=== PATIENT | female | born 1945 | race Caucasian/White ===

== ENCOUNTER 2024-07-25 16:40 | Emergency (ER) | payer MEDICARE, SELFPAY ==
[2024-07-25 16:52] VITALS: BP 155/84; PULSE 79; RESP 18; TEMP 36.7; O2SAT 99
--- NOTE | 2024-07-25 17:07 | ED.URI ---
HPI - URI/Sore Throat General Chief Complaint: Upper Respiratory Infection Stated Complaint: Sinus Pressure Time Seen by Provider: 07/25/24 17:07 Source: patient Mode of arrival: ambulatory Limitations: no limitations History of Present Illness HPI Narrative: 78-year-old female presents with complaint of sinus congestion, pressure, runny nose off and on for the past month. Patient reports an last 4 days sinus pressure worse with coughing, postnasal drainage and hoarse voice. Takes Claritin and Flonase daily. Afebrile. All systems reviewed and negative except as noted above. Related Data Home Medications Medication Instructions Recorded Confirmed amlodipine 5 mg tablet mg 07/25/24 atenolol 50 mg tablet mg 07/25/24 atorvastatin 40 mg tablet mg 07/25/24 insulin NPH-regular 70-30 U-100 subcut 07/25/24 insulin 100 unit/mL subcutaneous pen (Humulin 70/30 U-100 KwikPen) lancets 33 gauge (OneTouch Delica 07/25/24 07/25/24 Plus Lancet) lisinopril 20 mg tablet mg 07/25/24 metformin 500 mg tablet mg 07/25/24 pen needle, diabetic 32 gauge x 07/25/24 07/25/24 5/32 (Droplet Pen Needle) tirzepatide 2.5 mg/0.5 mL mg subcut 07/25/24 subcutaneous pen injector (Jenniero) trazodone 50 mg tablet mg 07/25/24 Allergies Allergy/AdvReac Type Severity Reaction Status Date / Time Sulfa (Sulfonamide Allergy Rash Verified 07/25/24 17:08 Antibiotics) Review of Systems Review of Systems: CONSTITUTIONAL: Denies fever, chills, or sweats. EYES: Denies visual changes, redness, or discharge. ENT: Reports rhinorrhea, congestion, sinus pressure, postnasal drainage. Denies sore throat, or otalgia. CARDIOVASCULAR: Denies chest pain, palpitations, or edema. RESPIRATORY: reports cough. Denies dyspnea. GASTROINTESTINAL: Denies abdominal pain, nausea, vomiting, or diarrhea. GENITOURINARY: Denies dysuria or hematuria. SKIN: Denies rash or itching. MUSCULOSKELETAL: Denies back pain, joint pain, or myalgia. NEUROLOGIC: Denies headache, numbness, or weakness. PSYCHIATRIC: Denies anxiety or depression. All other systems reviewed are negative, except as documented in HPI. PMFSH Comments At time of signature, agree with nursing past medical, surgical, social and family history. There is no relevant family history pertinent to the presenting complaint. Exam Narrative: GENERAL: This is a well-nourished, well-developed patient, in no apparent distress. HEAD: normocephalic, atraumatic. EYES: PERRL. Sclera clear/white. Vision is grossly intact. EARS: External ears normal, auditory canals clear and without drainage, TMs normal without perforation. Hearing grossly intact. NOSE: External nose normal with clear nasal drainage, moderate congestion, erythema swelling to bilateral nares. Ethmoid sinus tenderness on palpation. THROAT: Mucous membranes moist, posterior pharynx clear. NECK: Neck supple, non-tender without lymphadenopathy, masses or thyromegaly. CARDIOVASCULAR: Regular rate and rhythm without murmurs, gallops, or rubs. RESPIRATORY: Clear to auscultation. Breath sounds equal bilaterally. No wheezes, rales, or rhonchi. SKIN: warm, Dry, intact with no suspicious lesions or rash, good texture and turgor. NEURO: awake, alert, and oriented to person, place and time. There were no obvious focal neurologic abnormalities. EXTREMITIES: No joint tenderness, effusion, or edema noted. Course Course Level of Care: Express Care Visit Vital Signs Vital signs: Vital Signs Temperature 36.7 C 07/25/24 16:52 Pulse Rate 79 07/25/24 16:52 Respiratory Rate 18 07/25/24 16:52 Blood Pressure 155/84 H 07/25/24 16:52 Pulse Oximetry 99 07/25/24 16:52 Oxygen Delivery Room Air 07/25/24 16:52 Temperature 36.7 C 07/25/24 16:52 Pulse Rate 79 07/25/24 16:52 Respiratory Rate 18 07/25/24 16:52 Blood Pressure 155/84 H 07/25/24 16:52 Pulse Oximetry 99 07/25/24 16:52 Oxygen Delivery Room
== END 2024-07-25 17:21 | disposition home or self-care (01) ==
PROVIDERS: Emergency Provider Nurse Practitioner Family; PCP Internal Medicine Geriatric Medicine
DX: J01.90 Acute sinusitis, unspecified (principal); E78.00 Pure hypercholesterolemia, unspecified; I10 Essential (primary) hypertension; E11.9 Type 2 diabetes mellitus without complications; M19.90 Unspecified osteoarthritis, unspecified site
CPT/HCPCS: 99203; G0463

== ENCOUNTER 2025-05-27 09:28 | Emergency (ER) | payer MEDICARE, SELFPAY ==
[2025-05-27 09:40] VITALS: BP 174/60; PULSE 77; RESP 20; TEMP 36.6; O2SAT 98
--- OUTSIDE RECORDS SUMMARY | 2025-05-27 10:09 | XMS_ITS | Encounter Summary ---
Author Organization [facility] Address [address] [place] [address] Care Team Providers Care Study Assistant Name Role Phone Luz Oneal MD Primary Care Provider [phone] Reason for Visit * Reason Onset Date Comments Medication Issue 01/18/2024 Encounter Details Date Type Department Care Team (Late st Contact Info) Description 01/18/2024 Telephone [facility] - CUPOLA PATCHER [address] [place] [address] Yamileth Johnson MD [address] [place] [address] Medication Issue Social History Tobacco Use Types Packs/Day Years Used Date Smoking Tobacco: Never Smokeless Tobacco: Never Alcohol Use Standard Drinks/Week Comments No 0 (1 standard drink = 0.6 oz pur e alcohol) Comments No Sex and Gender Information Value Date Recorded Sex Assigned at Not on file 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 Answer Date of Assessment Author No 03/22/2017 7:53 AM Nicole Espinoza RN * Is person blind or have serious difficulty seeing? Answer Date of Assessment Author No 03/22/2017 7:53 AM Nicole Espinoza RN * Does person have serious difficulty walking/climbing stairs? Answer Date of Assessment Author No 03/22/2017 7:53 AM Nicole Espinoza RN * Does person have difficulty dressing/bathing? Answer Date of Assessment Author No 03/22/2017 7:53 AM CDT Nicole Schaefer RN * Does person have difficulty doing errands alone? Answer Date of Assessment Author No 03/22/2017 7:53 AM CDT Nicole Schaefer RN documented as of this encounter Mental Status * Does person have difficulty concentrating/remembering/making decisions? Answer Entry Date Author No 03/22/2017 7:53 AM CDT Nicole Schaefer RN documented in this encounter Miscellaneous Notes * Telephone Encounter - Yamileth Srinivasan RN - 01/18/2024 11:50 AM CDT norco 5/325 #90 Last filled 12/08/2023 Take 1 (one) tablet by mouth every 8 hours as needed for Pain forwarded to Dr Johnson * Telephone Encounter - Sweta Liu - 01/18/2024 11:27 AM CDT Pt called and stated she is needed a refill on her pain meds. CB [phone] documented in this encounter Plan of Treatment Not on file documented as of this encounter Visit Diagnoses Not on filedocumented in this encounter Care Teams Study Assistant Relationship Specialty Start Date End Date Luz Oneal MD [address] [place] [id number] PCP - General Internal Medicine 06/22/23 documented as of this encounter
--- OUTSIDE RECORDS SUMMARY | 2025-05-27 10:09 | XMS_ITS | Encounter Summary ---
Author Organization [facility] Address [address] [place] [address] Care Team Providers Care Director Sales Training Name Role Phone Luz Oneal MD Primary Care Provider [phone] Reason for Visit * Reason Onset Date Comments Refill Request 09/21/2023 Encounter Details Date Type Department Care Team (Late st Contact Info) Description 09/21/2023 Telephone [facility] - SENIOR NET SOFTWARE ENGINEER [address] [place] [address] Yamileth Johnson MD [address] [place] [address] Refill Request Social History Tobacco Use Types Packs/Day Years Used Date Smoking Tobacco: Never Smokeless Tobacco: Never Alcohol Use Standard Drinks/Week Comments No 0 (1 standard drink = 0.6 oz pur e alcohol) Comments No Sex and Gender Information Value Date Recorded Sex Assigned at Not on file 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 Answer Entry Date Author No 03/22/2017 7:53 AM Nicole Espinoza RN documented in this encounter Miscellaneous Notes * Telephone Encounter - Yamileth Srinivasan RN - 09/21/2023 9:48 AM GEAR DESIGN ENGINEER HYDROcodone-acetaminophen ([place]) 5-325 MG tablet Take 1 (one) tablet by mouth every 8 hours as needed for Pain Reasons: Pain #90 Last written 08/11/2023 Forwarded to provider DESIGN ENGINEER * Telephone Encounter - Raf Rodriguez - 09/21/2023 9:03 AM CST The patient called requesting a refill of Vicodin be called into the [facility] in [place], [place] please. Patient CB: [phone] Thank you. DESIGN ENGINEER documented in this encounter Plan of Treatment Not on file documented as of this encounter Visit Diagnoses Not on filedocumented in this encounter Care Teams Director Sales Training Relationship Specialty Start Date End Date Luz Oneal MD [address] [place] [address] PCP - General Internal Medicine 06/22/23 documented as of this encounter
--- OUTSIDE RECORDS SUMMARY | 2025-05-27 10:10 | XMS_ITS | Encounter Summary ---
Author Organization [facility] Address [address] [place] [address] Care Team Providers Care Recycling Tech Name Role Phone Luz Oneal MD Primary Care Provider [phone] Luz Oneal MD Primary Care Provider [phone] Reason for Visit * Reason Onset Date Comments Med Question 08/27/2021 Encounter Details Date Type Department Care Team (Late st Contact Info) Description 08/27/2021 Telephone [facility] 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 Answer Date of Assessment Author No 03/22/2017 7:53 AM Nicole Espinoza RN * Does person have difficulty doing errands alone? Answer Date of Assessment Author No 03/22/2017 7:53 AM Nicole Espinoza RN documented as of this encounter Mental Status * Does person have difficulty concentrating/remembering/making decisions? Answer Entry Date Author No 03/22/2017 7:53 AM Nicole Espinoza RN documented in this encounter Miscellaneous Notes * Telephone Encounter - Salome Medeiros LPN - 08/27/2021 9:08 AM BOAT OPERATOR Last visit 03/2021 Next visit 09/2021 Last refill 07/2021 for 90 tablets Due to type of medication will have to send to provider for review and possible signature. OPERATOR * Telephone Encounter - Vince Rodriguez - 08/27/2021 8:37 AM CST PT is calling to request a refill of pain meds Hydrocodone. Pharmacy on file still accurate OPERATOR documented in this encounter Plan of Treatment Not on file documented as of this encounter Visit Diagnoses Not on filedocumented in this encounter Care Teams Recycling Tech Relationship Specialty Start Date End Date Luz Oneal MD [address] [place] [address] PCP - General 12/09/11 06/21/23 Luz Oneal MD [address] [place] [address] PCP - General Internal Medicine 06/22/23 documented as of this encounter
--- OUTSIDE RECORDS SUMMARY | 2025-05-27 10:10 | XMS_ITS | Encounter Summary ---
Author Organization [facility] Health Address [address] [place] [address] Care Team Providers Care Meat Wrapper Name Role Phone Luz Oneal MD Primary Care Provider [phone] Reason for Visit * Reason Onset Date Comments Refill Request 05/08/2024 Encounter Details Date Type Department Care Team (Late st Contact Info) Description 05/08/2024 Telephone [facility] - CONTROLS TECHNICIAN [address] [facility] [address] [address] [place] [address] Yamileth Johnson MD [address] [place] [address] Refill Request Social History Tobacco Use Types Packs/Day Years Used Date Smoking Tobacco: Never Smokeless Tobacco: Never Alcohol Use Standard Drinks/Week Comments No 0 (1 standard drink = 0.6 oz pur e alcohol) Comments No Sex and Gender Information Value Date Recorded Sex Assigned at Not on file Legal Sex Female 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 CB: [phone] documented in this encounter Plan of Treatment Not on file documented as of this encounter Visit Diagnoses Not on filedocumented in this encounter Care Teams Meat Wrapper Relationship Specialty Start Date End Date Luz Oneal MD [address] [place] [address] PCP - General Internal Medicine 06/22/23 documented as of this encounter
--- OUTSIDE RECORDS SUMMARY | 2025-05-27 10:10 | XMS_ITS | Encounter Summary ---
Author Organization [facility] Address [address] [place] [address] Care Team Providers Care Blunger Name Role Phone Luz Oneal MD Primary Care Provider [phone] Reason for Visit * Reason Onset Date Comments MEDICATION REFILL 01/09/2025 Encounter Details Date Type Department Care Team (Late st Contact Info) Description 01/09/2025 Telephone [facility] - LIFE INSURANCE AGENT [address] [place] [address] Yamileth Johnson MD [address] [place] [address] MEDICATION REFILL Social History Tobacco Use Types Packs/Day Years Used Date Smoking Tobacco: Never Smokeless Tobacco: Never Alcohol Use Standard Drinks/Week Comments No 0 (1 standard drink = 0.6 oz pur e alcohol) Comments No Sex and Gender Information Value Date Recorded Sex Assigned at Not on file Legal Sex Female 1:09 PM FORGE TENDER Gender Identity Female Sexual Orientation Not on [...] Telephone Encounter - Yamileth Srinivasan RN - 01/09/2025 10:50 AM CDT HYDROcodone-acetaminophen ([place]) 5-325 MG tablet Take 1 (one) tablet by mouth every 8 hours as needed for Pain Reasons #90 Last filled 11/28/2024 [facility] Forwarded to provider * Telephone Encounter - Clover Osborn - 01/09/2025 10:45 AM CDT Pt is wanting an refill on pain med. CB: [phone] documented in this encounter Plan of Treatment Not on file documented as of this encounter Visit Diagnoses Not on filedocumented in this encounter Care Teams Blunger Relationship Specialty Start Date End Date Luz Oneal MD [address] [place] [address] PCP - General Internal Medicine 06/22/23 documented as of this encounter
--- OUTSIDE RECORDS SUMMARY | 2025-05-27 10:10 | XMS_ITS | Encounter Summary ---
Author Organization [facility] Address [address] [place] [address] Care Team Providers Care Assistant Grocery Store Manager Name Role Phone Luz Oneal MD Primary Care Provider [phone] Luz Oneal MD Primary Care Provider [phone] Reason for Visit * Reason Onset Date Comments Question 10/27/2022 Encounter Details Date Type Department Care Team (Late st Contact Info) Description 10/27/2022 Telephone [facility] [address] [place], [place] [id number] Yamileth Johnson MD [address] [place] [address] Question Social History Tobacco Use Types Packs/Day Years Used Date Smoking Tobacco: Never Smokeless Tobacco: Never Alcohol Use Standard Drinks/Week Comments No 0 (1 standard drink = 0.6 oz pur e alcohol) Comments No Sex and Gender Information Value Date Recorded Sex Assigned at Not on file Legal Sex Female 1:09 PM REVENUE COORDINATOR Gender Identity Female Sexual Orientation Not on [...] encounter Miscellaneous Notes * Telephone Encounter - Tyler Irving RN - 10/27/2022 1:03 PM CST Last refilled 09/22/22. Last visit 07/31. Due to type of medication will have to send to provider for review and refill. NUE COORDINATOR * Telephone Encounter - Corinne Espinoza - 10/27/2022 11:32 AM CST Pt calling tot get a refill on her Vicodin .. Please contact # [phone] NUE COORDINATOR documented in this encounter Plan of Treatment Not on file documented as of this encounter Visit Diagnoses Not on filedocumented in this encounter Care Teams Assistant Grocery Store Manager Relationship Specialty Start Date End Date Luz Oneal MD [address] [place] [address] PCP - General 12/09/11 06/21/23 Luz Oneal MD [address] [place] [address] PCP - General Internal Medicine 06/22/23 documented as of this encounter
--- OUTSIDE RECORDS SUMMARY | 2025-05-27 10:10 | XMS_ITS | Clinical Summary ---
Author Organization [facility] Address [address] [place] [address] Care Team Providers Care Block Trimmer Name Role Phone Luz Oneal MD Primary Care Provider [phone] Source Comments [facility] [facility],non-owned Affiliates and Associated Physician Practices is amultiple site organization consisting of ambulatory clinics and hospital sitesin [place], [place], [place] and [place]. This disclosure is being madepursuant to the Care Everywhere program and may not contain all information available regarding this patient. Last updated 18.[facility] [facility] Allergies Active Allergy Reactions Criticality Noted Date Comments Empagliflozin Itching Low 08/30/2023 Diffuse body itching also developed vaginal itching Gabapentin Other Low 12/02/2022 Excessive fatigue/weakness Sitagliptin Rash Medium 09/15/2023 Develops itching and rash Sulfa Drugs Itching,Swelling 12/02/2011 Medications * Be aware that medications may not be up to date on this document. Alwaysverify current medications with the patient. metFORMIN (GLUCOPHAGE) 500 MG tabletIndicati ons:Type 2 Diabetes Mellitus Take 1 (one) tablet by mouth 2 times daily with morning and evening meal Reasons: Type 2 Diabetes Active atenolol (TENORMIN) 50 MG tabletIndicati ons:Hypertensi on Take 1 (one) tablet by mouth once daily Reasons: High Blood Pressure Active Insulin NPH Isophane & Regular (HUMULIN 70/30 SC) Inject 20 Units subcutaneously 2 times daily Active lisinopril (Prinivil; Zestril) 20 MG tablet Take 1 (one) tablet by mouth once daily 2 Active Lancets (ONETOUCH DELICA PLUS 33G EXTRA FINE LANCET) USE TO CHECK BLOOD SUGAR TWICE DAILY 2 Active OneTouch Verio test strip 2 times daily 2 Active TRUEplus 5-[place] 32G X 4 MM MISC USE DIRECTED TWICE DAILY 3 Active triamcinolone acetonide (Kenalog) 0.1 % ointment APPLY TOPICALLY TO THE LIP RASH FOUR TIMES DAILY NEEDED 3 Active atorvastatin (Lipitor) 40 MG tablet Take 1 (one) tablet by mouth once daily 3 Active Cholecalcifero l (Vitamin D-[address]) 25 MCG (1000 UT) Take 1 (one) tablet by mouth once daily Active cyanocobalamin (Vitamin B-12) 1000 MCG tablet Take 1 (one) tablet by mouth once daily 3 Active empagliflozin (Jardiance) 10 MG tablet Take 1 (one) tablet by mouth once daily Active amLODIPine (Norvasc) 5 MG tablet Take 1 (one) tablet by mouth once daily 4 Active HYDROcodone-ac etaminophen ([place]) 5-325 MG tabletIndicati ons:Pain Take 1 (one) tablet by mouth every 8 hours as needed for Pain Reasons: Pain 90 tablet 5 Active Active Problems Problem Noted Date Diagnosed Date Chronic pain syndrome 03/13/2020 OAB (overactive bladder) 04/19/2019 Chronic interstitial cystitis Immunizations Immunization Administration Dates Next Due INFLUENZA VACCINE, TRIV. (AF LURIA, FLUZONE TRIVALENT; 6MO+) (IIV3) 07/31/2015,07/27/2012 INFLUENZA VACCINE 07/10/2018,07/10/2017 INFLUENZA VACCINE, HIGH-DOSE , QUADR. (FLUZONE HIGH-DOSE QUADRIVALENT; 65Y+), 0.7 ML (HD-IIV4) 07/17/2018 PNEUMOCOCCAL PPSV23 06/16/2016,05/04/2013 Pneumococcal Pcv13 Conj 05/27/2015 TDAP (7yrs+) 08/09/2012 Family History Medical History Relation Name Comments Heart Disease Brother 1 Diabetes Brother 2 Diabetes Father Elevated Lipids Father Heart Disease Father Hypertension Father Breast Cancer after age 50 or unknown Maternal Grandmo ther Cancer - Ovarian Mother Diabetes Mother Heart Disease Mother Relation Name Status Comments Brother 1 Brother 2 Father Maternal Grandmother Mother Social History Tobacco Use Types Packs/Day Years Used Date Smoking Tobacco: Never Smokeless Tobacco: Never Alcohol Use Standard Drinks/Week Comments No 0 (1 standard drink = 0.6 oz pur e alcohol) Comments No Sex and Gender Information Value Date Recorded Sex Assigned at Not on file Legal Sex Female 1:09 PM CANCER PROGRAM CONSULTANT Gender Identity Female Sexual Orientation Not on file Last Filed Vital Signs Vital Sign Reading Time Taken Comments Blood Pressure 146/78 06/27/2024 9:24 AM CDT Pulse 55 08/08/2023 12:20 PM CDT Temperature 36.7 C (98 F) 08/08/2023 11:52 AM CDT Respiratory Rate 14 08/08/2023 12:20 PM CDT Oxygen Saturation 95% 08/08/2023 12:20 PM CDT Inhaled Oxygen Concentration - - Weight 78 kg (172 lb) 06/27/2024 9:24 AM CDT Height 165.1 cm (5' 5) 06/27/2024 9:24 AM CDT Body Mass Index 28.62 06/27/2024 9:24 AM CDT Plan of Treatment Health Maintenance Due Date Last Done Comments MEDICARE AWV 12 MONTHS 1945 Opioid Medication Agreement - Annual 1945 HEPATITIS C SCREENING 08/14/1965 ZOSTER VACCINE (1 of 2) 1997 DTAP/TDAP/TD VACCINES (2 - Td or Tdap) 08/09/2022 08/09/2012 Respiratory Syncytial Virus (RSV) Vaccine Pt: or over 60 yrs (1 - 1-dose 75+ series) 2022 COVID-19 VACCINE ( season) 2024 01/15/2022, 12/26/2020, 12/05/2020 DEPRESSION SCREENING 10/10/2024 INFLUENZA VACCINE (#1) 2025 , 07/10/2021, 07/16/2020, Additional history exists PNEUMOCOCCAL VACCINE 50+ Completed 016, 05/27/2015, 05/04/2013 BONE DENSITY TESTING Completed 11/30/2021 HEPATITIS B VACCINE Aged Out No longe r eligible based on patient's age to complete this topic HIB VACCINE Aged Out No longer eligi ble based on patient's age to complete this topic HPV VACCINE Aged Out No longer eligi ble based on patient's age to complete this topic MENINGOCOCCAL (Group B) VACCINE SHARED DECISION-MAKING Aged Out No longer eligible based on patient's age to complete this topic MENINGOCOCCAL GROUPS A/C/Y/W VACCINE Aged Out No longer eligible based on patient's age to complete this topic Insurance [facility] MEDICARE MEDICARE ANTHEM Care Teams Block Trimmer Relationship Specialty Start Date End Date Luz Oneal MD [address] [place] [address] PCP - General Internal Medicine 06/22/23
--- OUTSIDE RECORDS SUMMARY | 2025-05-27 10:10 | XMS_ITS | Encounter Summary ---
Author Organization [facility] Address [address] [place] [address] Care Team Providers Care Bobbin Hauler Name Role Phone Luz Oneal MD Primary Care Provider [phone] Luz Oneal MD Primary Care Provider [phone] Reason for Visit * Reason Onset Date Comments Refill Request 01/19/2023 Encounter Details Date Type Department Care Team (Late st Contact Info) Description 01/19/2023 Telephone [facility] [address] [place] [address] Yamileth Johnson MD [address] [place] [address] Refill Request Social History Tobacco Use Types Packs/Day Years Used Date Smoking Tobacco: Never Smokeless Tobacco: Never Alcohol Use Standard Drinks/Week Comments No 0 (1 standard drink = 0.6 oz pur e alcohol) Comments No Sex and Gender Information Value Date Recorded Sex Assigned at Not on file Legal Sex Female 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 * Telephone Encounter - Almita Gu - 01/19/2023 1:46 PM CDT Pt is calling to get a refill on Vidzon... Hydrocodone 5.325 documented in this encounter Plan of Treatment Not on file documented as of this encounter Visit Diagnoses Not on filedocumented in this encounter Care Teams Bobbin Hauler Relationship Specialty Start Date End Date Luz Oneal MD [address] [place] [address] PCP - General 12/09/11 06/21/23 Luz Oneal MD [address] [place] [address] PCP - General Internal Medicine 06/22/23 documented as of this encounter
--- OUTSIDE RECORDS SUMMARY | 2025-05-27 10:10 | XMS_ITS | Encounter Summary ---
Author Organization [facility] Address [address] [facility] [address] Care Team Providers Care R&D Engineer Name Role Phone Luz Oneal MD Primary Care Provider [phone] Luz Oneal MD Primary Care Provider [phone] Reason for Visit * Reason Onset Date Comments MEDICATION REFILL 04/08/2022 Pt states she need her Encounter Details Date Type Department Care Team (Late st Contact Info) Description 04/08/2022 Telephone [facility] [address] [place] [address] Yamileth Johnson MD [address] [place] [address] MEDICATION REFILL (Pt states she need her ) Social History Tobacco Use Types Packs/Day Years Used Date Smoking Tobacco: Never Smokeless Tobacco: Never Alcohol Use Standard Drinks/Week Comments No 0 (1 standard drink = 0.6 oz pur e alcohol) Comments No Sex and Gender Information Value Date Recorded Sex Assigned at Not on file 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 Forwarded to provider * Telephone Encounter - Meme Meza - 04/08/2022 9:49 AM CDT Pt needs refill on her Hydrocodone (NORCO) 5-325 mg tablets [id number] documented in this encounter Plan of Treatment Not on file documented as of this encounter Visit Diagnoses Not on filedocumented in this encounter Care Teams R&D Engineer Relationship Specialty Start Date End Date Luz Oneal MD [address] [place] [address] PCP - General 12/09/11 06/21/23 Luz Oneal MD [address] [place] [address] PCP - General Internal Medicine 06/22/23 documented as of this encounter
--- OUTSIDE RECORDS SUMMARY | 2025-05-27 10:10 | XMS_ITS | Encounter Summary ---
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 [address] [facility] [address] [place] [address] Yamileth Johnson MD [address] [place] [address] Social History Tobacco Use Types Packs/Day Years Used Date Smoking Tobacco: Never Smokeless Tobacco: Never Alcohol Use Standard Drinks/Week Comments No 0 (1 standard drink = 0.6 oz pur e alcohol) Comments No Sex and Gender Information Value Date Recorded Sex Assigned at Not on file 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 Answer Date of Assessment Author No 03/22/2017 7:53 AM CDT Nicole Schaefer RN documented as of this encounter Mental Status * Does person have difficulty concentrating/remembering/making decisions? Answer Entry Date Author No 03/22/2017 7:53 AM CDT Nicole Schaefer RN documented in this encounter Miscellaneous Notes * Telephone Encounter - Yamileth Srinivasan RN - 08/11/2023 10:57 AM CDT Will forward to provider Bouchra / #90 last prescribed 07/07/2023 * Telephone Encounter - Alice Sanchez - 08/11/2023 10:48 AM CDT Patient called in because she needs a refill on her vicodone. Thank you Alice CB: [phone] documented in this encounter Plan of Treatment Not on file documented as of this encounter Visit Diagnoses Not on filedocumented in this encounter Care Teams Roll Cleaner Relationship Specialty Start Date End Date Luz Oneal MD [address] [place] [address] PCP - General Internal Medicine 06/22/23 documented as of this encounter
--- OUTSIDE RECORDS SUMMARY | 2025-05-27 10:10 | XMS_ITS | Clinical Summary ---
Author Organization [facility] [address] Address [address] [place] [address] Phone Care Team Providers Care Economics Professor Name Role Phone Chelsey Marcus MD Primary Care Provider [phone] Yamileth Johnson MD Unavailable [phone] Shwetha Gonzalez MD Unavailable Ana Modi MD Unavailable Rajni Casillas MD Unavailable [phone] Jeramie De La Rosa MD Unavailable [phone] Edie Cardenas OD Unavailable Jeffrey Hernandez MD Unavailable Patty Wells RN Unavailable Allergies Active Allergy Reactions Criticality Noted Date Comments Dulaglutide Nausea only,Vomiting Low Reaction: Nausea, Vomiting, Gabapentin Other (See comments) Low 12/02/2022 Excessive fatigue/weakness Sitagliptin Rash Medium 09/15/2023 Develops itching and rash Empagliflozin Itching Low 08/30/2023 Diffuse body itching also developed vaginal itching Tirzepatide Nausea & Vomiting Low 08/13/2024 Nausea vomiting abdominal pain developed between 1 and 3 days after Mounjaro 2.5 mg. Medication discontinued Semaglutide Nausea only Low 05/06/2020 Fluoxetine Headache Low 06/19/2021 Insulin Glargine-Lixisenatide Other (See comments) Low 10/26/2024 Flu like symtpoms Sulfa (Sulfonamide Antibiotics) Hives,Itching,Swel ling Medium Venlafaxine Other (See comments) Low Reaction: Insomnia, Medications cholecalciferol (VITAMIN D-3) 25 mcg (1,000 unit) tablet Take 1 tablet (1,000 Units total) by mouth daily Active cyanocobalamin (Vitamin B-12) 1,000 mcg tabletIndications :Type 2 diabetes mellitus with microalbuminuria, with long-term current use of insulin ([facility]) Take 1 tablet (1,000 mcg total) by mouth daily 90 tablet 3 023 Active lancets miscIndications:T ype 2 diabetes mellitus with microalbuminuria, with long-term current use of insulin ([facility]) Check blood sugar 2 times a day or as directed. E11.9 200 each 3 024 Active blood glucose diagnostic (glucose blood) stripIndications: Type 2 diabetes mellitus with microalbuminuria, with long-term current use of insulin ([facility]) OneTouch Alona twice daily testing for insulin adjustment E11.9 200 each 3 024 Active amLODIPine (NORVASC) 5 mg tabletIndications :Hypertension complicating diabetes ([facility]) Take 1 tablet (5 mg total) by mouth daily 90 tablet 2 025 Active atenoloL (TENORMIN) 50 mg tabletIndications :Hypertension complicating diabetes ([facility]) Take 1 tablet (50 mg total) by mouth daily 90 tablet 2 025 Active atorvastatin (LIPITOR) 40 mg tabletIndications :Type 2 diabetes mellitus with microalbuminuria, with long-term current use of insulin ([facility]),Multiple-ty pe hyperlipidemia Take 1 tablet (40 mg total) by mouth daily 90 tablet 2 025 Active lisinopriL (PRINIVIL,ZESTRIL ) 20 mg tabletIndications :Hypertension complicating diabetes ([facility]) Take 1 tablet (20 mg total) by mouth daily 90 tablet 2 025 Active metFORMIN (GLUCOPHAGE) 500 mg tabletIndications :Type 2 diabetes mellitus with microalbuminuria, with long-term current use of insulin ([facility]) Take 1 tablet (500 mg total) by mouth 2 (two) times a day with meals 180 tablet 2 025 Active insulin NPH-insulin regular 70/30 (HumuLIN 70/30, NovoLIN 70/30) 100 unit/mL pen for injectionIndicati ons:type 2 diabetes mellitus Inject 40 Units under the skin 2 (two) times a day 24 mL 1 025 Active TRUEplus Pen Needle 32 gauge x 5/32 needleIndications :Type 2 diabetes mellitus with microalbuminuria, with long-term current use of insulin (HCC) USE DIRECTED TWICE DAILY 200 each 2 025 Active triamcinolone (KENALOG) 0.1 % ointmentIndicatio ns:Perleche Apply topically 4 (four) times a day as needed (To the lip rash) 80 g 1 025 Active blood-glucose meter ([employer] Verio Flex meter) miscIndications:T ype 2 diabetes mellitus with microalbuminuria, with long-term current use of insulin (HCC) Use to monitor glucose levels twice daily. E11.9 insulin dependent. ( Patient uses One touch Verio) 1 each 025 Active Narcan 4 mg/actuation spray,non-aerosol 0 025 Active HYDROcodone-aceta minophen (NORCO) 5-325 mg per tabletIndications :Pain Take 1-2 tablets by mouth every 4 (four) hours as needed for pain 40 tablet 025 Active glimepiride (AMARYL) 4 mg tabletIndications :Type 2 diabetes mellitus with microalbuminuria, with long-term current use of insulin ([facility]) Take 2 tablets (8 mg total) by mouth daily before breakfast 180 tablet 1 019 2019 Discontinued FLUoxetine (PROzac) 10 mg tablet/capsuleInd ications:Anxiety Take 1 tablet/capsule (10 mg total) by mouth daily 30 tablet/caps ule 1 021 2020 Discontinued HYDROcodone-aceta minophen (NORCO) 5-325 mg per tabletIndications :Chronic interstitial cystitis Take 1 tablet by mouth every 8 (eight) hours as needed for other (Interstitial cystitis pain) 90 tablet 025 2024 Discontinued(S top Taking at Discharge) enoxaparin (LOVENOX) 40 mg/0.4 mL syringeIndication s:Deep Vein Thrombosis Prevention Inject 0.4 mL (40 mg total) under the skin daily for 7 days 2.8 mL 025 2024 Additional Information Patient not taking.Reported on 05/09/2025 walker misc 1 Units once for 1 dose 1 each 025 2024 HYDROcodone-aceta minophen (NORCO) 5-325 mg per tabletIndications :Pain Take 1-2 tablets by mouth every 4 (four) hours as needed for pain 40 tablet 025 2024 Discontinued(R eorder) Active Problems Problem Noted Date Diagnosed Date Midline cystocele 05/14/2025 Overview (05/14/2025): The to hymenal ring or introitus on exam. Not the source of her pelvic pain. I would not recommend surgery at this point. Overactive bladder 05/14/2025 Pelvic and perineal pain 05/14/2025 Pelvic floor dysfunction 05/14/2025 Stress incontinence in female 05/14/2025 Overview (05/14/2025): Urodynamics 11/08/19: Stress Urinary Incontinence Hospital discharge follow-up 05/09/2025 Closed fracture of neck of right femur Varicose veins of left lower extremity with infl ammation 01/24/2025 Acute bilateral low back pain without sciatica 0 03/06/2024 Assessment & Plan (03/06/2024 12:21 PM CDT): Pain for approx 1 week, see HPI for details. Mild tenderness on exam, no other acute findings. Will obtain XR of lumbar spine to r/o arthritis or any other structural changes. Likely muscular in nature, tylenol and aspercreme with lidocaine patches encouraged. Heat/ice as tolerated. Gentle stretching encouraged. Neuropathy 10/29/2022 Assessment & Plan (12/30/2022 10:08 AM CDT): Persistent problem, present times reportedly 5-6 months, associated with numbness and tingling Physical examination as documented - no signs/symptoms of serious illness noted CT scan of abdomen and pelvis in 11/2022: MUSCULOSKELETAL: Mild right lumbar curve. Mild degenerative changes in both hips. Multilevel degenerative disc disease in the lumbar spine with moderate disc space narrowing L5-S1. Suspect nerve root impingement/sciatica Recommended empiric treatment with steroids and muscle relaxants - patient agreeable to plan Will discuss case with Dr. Marcus to discuss future management recommendations in case steroids and muscle relaxant do not improve neuropathic pain Orders for [facility]MS STAFF to arrange None at this time Orders for Zulma Devine to arrange Start Medrol dose pack as prescribed - complete course, take with food to prevent stomach upset Start tizanidine as prescribed Consider topical lidocaine, topical diclofenac, topical capsaicin Consider lower back stretching and strengthening exercises Consider PT referral Continue monitoring symptoms - report persistent or worsening symptoms to the office or go to ER Follow up as scheduled with Dr. Marcus or sooner if necessary Assessment & Plan (12/02/2022 1:51 PM 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): Chronic problem, slightly improved with gabapentin but patient experiencing side effects (see HPI) Physical examination as documented - no signs/symptoms of serious illness noted Recommended stopping gabapentin and starting duloxetine for neuropathy - patient agreeable to plan Orders for AMS STAFF to arrange 4 week follow up - neuropathy Orders for Zulma Devine to arrange STOP gabapentin Start duloxetine as ordered Monitor for adverse effects of medication and report to the office Continue monitoring symptoms - report persistent or worsening symptoms to the office or go to ER Follow up in 4 weeks to follow up on neuropathy s/p starting duloxetine Follow up as scheduled with Dr. Marcus or sooner if necessary Assessment & Plan (10/29/2022 10:33 AM 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): Acute problem, present times a few days Went to ER earlier this week d/t the pain - workup negative, see chart for full details Physical examination as documented - no signs/symptoms of serious illness noted Suspect neuropathy secondary to uncontrolled DM Recommended gabapentin for neuropathic pain and continued supportive measures for chronic venous insufficiency since initiation of compression stockings have reportedly helped relieve some of the patient's discomfort - patient agreeable to plan Orders for AMS STAFF to arrange None at this time Orders for Zulma Devine to arrange Start gabapentin as ordered - start with 1 capsule nightly times 3-4 nights - if not getting enough control, increase to 2 capsules nightly times 3-4 nights, then again increase by 1 capsule nightly (to max of 3 capsules) nightly if not getting enough pain relief with 2 capsules nightly Continue using compression stockings Continue OTC medications as needed for pain Continue elevating lower extremities to help with swelling secondary to varicose veins Maintain compliance with diabetes medications and lifestyle recommendations to slow progression of neuropathy Continue monitoring symptoms - report persistent or worsening symptoms to the office or go to ER Follow up with Dr. Mracus as scheduled in 11/2022 or sooner if necessary Positive colorectal cancer screening using Colog uard test 12/11/2021 Overview (05/21/2022): Refer to GI for full colonoscopy, advised even in light of her perineal discomfort syndrome, follow-up colonoscopy (-) for colon cancer, (+) for diverticulosis Type 2 diabetes mellitus wit h microalbuminuria, with long-term current use of insulin ([facility]) 05/06/2020 Assessment & Plan (10/26/2024 1:17 PM 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): Chronic, uncontrolled. Goal <8%. Recent A1c 8.2, improved from 8.5 in June. Has failed multiple GLP-1s, soliqua, januvia, and jardiance, due to side effects. Admits eating low carb meals but has trouble avoiding baked goods/sweets. Advised high protein snacks instead. Offered referral to hematology nurse educator- patient refused. Also offered referral to Endocrinology, again patient refused. Encouraged heart healthy exercise and portion control. Continue Humulin 70/30 at 40units BID. Continue to monitor sugars daily AM and record. Follow in 3 months. Assessment & Plan (09/25/2024 2:51 PM 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): Chronic, uncontrolled. Last A1c from June was 8.5. Asymptomatic, no acute findings on exam. She has been taking the Humulin 70 30 for many years. We will try switching to Soliqua 30 units daily x1 week then if not having GI symptoms can go to 30 units b.i.d. continue low carb diet and heart healthy exercise as discussed. Follow in 1 month with repeat BMP and A1c before. Assessment & Plan (03/06/2024 12:27 PM CDT): Chronic uncontrolled. Last HbA1c on 01/31/24 was 8.9. NPH was increased to 40u BID, taking Metfromin as rxd. AM sugars at home running 120-140s after cutting out sweets and snacks. No acute symptoms or findings on exam. Continue NPH and metformin as rxd. Heart healthy diet and exercise. Keep follow up and repeat labs as scheduled next month. Assessment & Plan (02/16/2024 9:18 AM CDT): Chronic uncontrolled. Last HbA1c on 01/31/24 was 8.9. NPH was increased to 40u BID, taking Metfromin as rxd. random sugar in office today 131, ate toast and whiting approx 2 hours ago. Strips are not . AM sugars at home running 120-140s after cutting out sweets and snacks. No acute symptoms or findings on exam. Discussed increasing NPH to 42u, patient wants to see what she can do with diet first. Keep follow in 3 weeks as scheduled. Assessment & Plan (01/31/2024 4:26 PM CDT): Chronic, uncontrolled. Last HbA1c from july was 9.0, will recheck today. Taking metformin and humulin 35u BID as rxd. Attempts to eat low carb, no regular exercise routine. Continue current regimen for now. ADDENDUM: HbA1c came back at 8.9- too high to clear her for surgery. We will increase Humulin to 40 units BID and follow in 2 weeks. Hx of adenomatous colonic polyps 05/16/2017 Anxiety 03/27/2015 Multiple-type hyperlipidemia 02/23/2014 Overview (01/12/2017): Combined hyperlipidemia Assessment & Plan (10/26/2024 12:49 PM 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): Chronic, controlled on atorvastatin 40 mg daily. Recent LDL from August down to 52. Encouraged continued heart healthy diet and exercise. Continue same Chronic interstitial cystitis 02/23/2014 Overview (01/12/2017): Interstitial cystitis Assessment & Plan (10/18/2022 10:24 AM 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): Chronic problem being treated by [employer]. Has seen urology many years ago for this issue and has refused further procedures. Last round of abx was macrobid on 07/21/22, Rxd macrobid today as directed. Push fluids. Avoid citrus and caffeine. Keep follows with [employer]. Call if symptoms not improved in 1 week. Hypertension complicating diabetes 02/23/2014 Overview (01/12/2017): Hypertension, benign Assessment & Plan (10/26/2024 12:50 PM 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): Chronic, uncontrolled. BP elevated at 148/66 (74). Asymptomatic, No acute findings on exam. BMP and lipids from August unremarkable. Admits amlodipine 10 mg gave her flushing, she is back to taking the 5 mg dose. BP at home running 140s over 70s according to record. Continue atenolol and lisinopril as prescribed. low salt diet. Continue to monitor blood pressure daily a.m. and record. Assessment & Plan (09/25/2024 2:50 PM 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): Chronic, uncontrolled. BP elevated at 176/66 (70). Asymptomatic, No acute findings on exam. BMP and lipids from last month unremarkable. Increase amlodipine to 10 mg daily. Continue atenolol and lisinopril as prescribed. low salt diet. Continue to monitor blood pressure daily a.m. and record, call in 1 week with update. Assessment & Plan (03/06/2024 12:28 PM CDT): Chronic, at goal. BP stable in office today on current therapy. No acute findings on exam. Recent labs unremarkable. Continue atenolol and lisinopril as rxd. low salt diet. Assessment & Plan (02/16/2024 9:18 AM CDT): Chronic, at goal. BP stable in office today on current therapy. No acute findings on exam. Continue current regimen and low salt diet. Assessment & Plan (01/27/2024 10:39 AM CDT): Documented history of white coat HTN. 172/80 vs 162/66 on recheck at end of visit. Last labs in August were unremarkable. No acute findings on exam. Low risk for surgical complications, continue amlodipine, atenolol, and lisinopril as rxd. and low salt diet. Assessment & Plan (07/21/2022 4:12 PM CDT): Chronic problem, reportedly well controlled, elevated in office today Patient reports that blood pressure readings at home are usually in the 130s - patient states that blood pressure is always elevated when she comes to the office, also bladder pain is contributing Denies chest pain, shortness of breath, visual changes, headache Physical examination significant for mild suprapubic tenderness with palpation - no other acute findings on examination Orders for [facility] STAFF to arrange Urinalysis with reflex to culture for dysuria Orders for Zulma Devine to arrange FOR BLOOD PRESSURE: Continue current medication regimen Continue monitoring blood pressure as previously discussed with Dr. Marcus - call office if readings consistently >150/90 or <90/60 Low sodium diet Exercise as tolerated - aim for 150 minutes of moderate (brisk walk) activity weekly Follow up as scheduled with Dr. Marcus or sooner if necessary Assessment & Plan (10/11/2019 11:09 AM 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): Patient's blood pressure is well controlled today I've reviewed her charge on 09/10/2019 she had a blood pressure 202 /86. Has had look to over grafts of her blood pressure she has had several elevated blood pressures. Patient advised me that she has high white coat hypertension with hypertension. Today'blood pressure and a history of a much better blood pressure readings at home I did not change medications. Patient is Ozempic titration for diabetes. She was started September on this regiment Resolved Problems Problem Noted Date Diagnosed Date Resolved Date Hypertensive urgency 04/28/2025 025 Fall, initial encounter 04/27/202504/11 Pre-op evaluation 01/27/2024 05/09/2025 Assessment & Plan (03/06/2024 12:22 PM CDT): Presents for cataract removal clearance with Dr. Villanueva at [facility] on 03/15/24. Meds and allergies reviewed in office today for accuracy. Vitals stable, no acute findings on exam. Last HbA1c was 8.9 but insulin was adjusted and sugars are now stable with average of 130s in last month. No blood thinners. Other Labs from August unremarkable. Low risk for surgical complications, cleared for procedure. Will fax clearance form to Dr. Villanueva. Assessment & Plan (01/31/2024 4:24 PM CDT): Presents for cataract removal clearance with Dr. Villanueva at [facility]. Meds and allergies reviewed in office today for accuracy. Vitals stable, no acute findings on exam. Last labs are from July and HbA1c was 9.0, will repeat today. Low risk for surgical complications, cleared for procedure. Will fax clearance form to Dr. Villanueva once we have labs back. ADDENDUM: HbA1c came back at 8.9- too high to clear her for surgery. See plan for diabetes above. Perleche 09/15/2023 01/27/2024 Pain of left lower extremity 12/30/2022 05/09/2025 Colitis 11/10/2022 01/27/2024 Dysuria 07/21/2022 01/27/2024 Assessment & Plan (10/18/2022 10:22 AM 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): Typical UTI symptoms for 3 days, no hematuria. Mild suprapubic tenderness on exam. No other acute findings. Last Azo was almost 24hours ago, Will order UA with reflex culture. Rxd Macrobid as directed. Push fluids. Keep follows with [employer]. Call if symptoms not improved in 1 week. Assessment & Plan (07/21/2022 4:08 PM CDT): Acute problem, present for 3 days Patient reports burning with urination, frequency, urgency - denies fever, chills, flank pain, blood in urine Physical examination significant for mild suprapubic tenderness with palpation - no other acute findings Orders for AMS STAFF to arrange Urinalysis with reflex to culture for dysuria Orders for Zulma Devine to arrange FOR POSSIBLE UTI: Start Macrobid as ordered - complete course Can take with probiotic or yogurt to help with loose stools (common side effect of antibiotics) Continue Azo OTC until have taken for 3 days then discontinue Stay hydrated Can take naproxen or ibuprofen and/or acetaminophen for discomfort Follow up as scheduled with Dr. Marcus or sooner if necessary Clinical diagnosis of COVID-19 10/13/2021 05/21/2022 Forgetfulness 06/19/2021 05/21/2022 Feeling of chest tightness 05/08/2021 0 01/27/2024 Palpitations 05/06/2020 10/08/2020 Labile hypertension 03/31/2020 10/08/20 20 Acute cystitis without hematuria 10/11/2019 10/08/2020 Assessment & Plan (10/11/2019 11:04 AM 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): Patient advised me she has a history of interstitial cystitis. She has a prolapsed bladder. She is now under care of Dr. Ihsan Durham urogynecologist in [place]. She has not seen him yet she is under the care of the nurse practitioner who has a going to pelvic exercises. In the meantime the patient has developed her typical urinary tract problems with urgency for frequency and increased pain. She has some degree of pain daily but this is above the standard. No back pain no fever no chills. Plans at this time UA with culture patient is allergic to Bactrim a started on ciprofloxacin 500 mg b.i.d. For 5 days the culture results for probable will come back before the weekend this patient is symptomatic. Incomplete uterovaginal prolapse 05/16/2017 10/08/2020 Recurrent urinary tract infection 10/24/2015 10/08/2020 Overview (01/13/2017): Recurrent UTI Assessment & Plan (05/29/2020 10:21 AM CDT): Pt has symptoms that are consistent with a UTI (urinary frequency, urgency, and burning/painful urination). HX interstitial cystitis sees Dr. Ihsan Durham for this. We will do a UA with C/S --likely won't have results back for this until Tuesday. Will send out Macrobid 100mg BID x 5 days. Advised pt she can still use the AZO for urinary relief, and cranberry juice PRN. Atrophy of vagina 03/27/2015 10/08/2020 Anxiety and depression 02/23/201410/08 Overview (01/12/2017): Adjustment reaction with anxious mood IC (interstitial cystitis) 12/30/2011 1 Encounters Date Type Department Care Team Description 05/21/2025 Telephone [facility] [address] [facility] [address] [place] [address] Linette Slade RN 05/14/2025 1:30 PM CDT Office Visit [facility] [address] [place] [address] [address] [place] [address] Jamila Alicea PA Aftercare following surgery (Primary Dx) 05/14/2025 7:44 AM CDT - 05/14/2025 11:59 PM CDT Hospital Encounter [facility] [address] [place] [address] [address] [place] [address] Discharge Disposition: Discharge to home or self care 05/14/2025 Documentation [facility] [address] [facility] [address] [place] [address] Chelsey Marcus MD 05/09/2025 2:30 PM CDT Office Visit [facility] 1 [facility] [address] [place] [address] Jannet Steel NP Hospital discharge follow-up (Primary Dx); Closed fracture of neck of right femur with routine healing, subsequent encounter; Hypertension complicating diabetes (HCC) 04/29/2025 12:00 PM CDT - 04/29/2025 2:25 PM CDT Surgery [facility] Operating Room 1 [place] [address] Jeffrey Hernandez MD RIGHT TOTAL HIP ARTHROPLASTY 04/29/2025 11:22 AM CDT Anesthesia Event [facility] Operating Room 1 [place] [address] James Pickens DO McDowell, Juri Osmell, MD 04/29/2025 Telephone [facility] [address] [facility] [address] [place] [address] Lori Bland PA 04/27/2025 2:51 PM CDT - 04/30/2025 4:59 PM CDT Hospital Encounter [facility] 1 [place] [address] Mohit Clement MD Bross, Deborah L F D, Brad Wong MD Fall, initial encounter (Primary Dx); Closed fracture of right hip, initial encounter (HCC); Chronic pain syndrome; Closed fracture of neck of right femur, initial encounter (HCC); Fractured hip, right, closed, initial encounter (HCC) Discharge Disposition: Discharge to home or self care 04/09/2025 2:10 PM CDT - 04/09/2025 11:59 PM CDT Hospital Encounter [facility] [address] [place] [address] Encounter for follow-up examination after completed treatment for conditions other than malignant neoplasm; Leg pain, bilateral Discharge Disposition: Discharge to home or self care 04/05/2025 12:57 PM CDT - 04/05/2025 11:59 PM CDT Hospital Encounter [facility] [address] [place] [address] Encounter for follow-up examination after completed treatment for conditions other than malignant neoplasm Discharge Disposition: Discharge to home or self care 04/04/2025 1:00 PM CDT Office Visit [facility] [address] [facility] [address] [place] [phone] Chelsey Marcus MD Annual physical exam (Primary Dx); Immunization counseling; Hypertension complicating diabetes (HCC); Type 2 diabetes mellitus with microalbuminuria, with long-term current use of insulin (HCC); Multiple-type hyperlipidemia; Perleche; Chronic interstitial cystitis; Menopause 04/04/[address] [facility] [address] [place] [address] Chelsey Marcus MD 04/02/2025 8:30 AM CDT Office Visit [facility] Vascular Surgery [address] Medical Office Building [address] [place] [address] Rajni Casillas MD Varicose veins of leg with pain, bilateral 03/27/2025 8:20 AM CDT Lab [facility] [address] [place] [address] Type 2 diabetes mellitus with microalbuminuria, with long-term current use of insulin (CMS/HCC) (HCC) 03/25/[address] [facility] [address] [place] [address] Chelsey Marcus MD 03/15/2025 2:00 PM CDT Ancillary Procedure [facility] [address] [place] [address] Screening mammogram for breast cancer 03/06/2025 Orders Only [facility] Surgery [address]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 g/dL [facility] ([place]) Comment:This result has been called to Priya Rodriguez/felicity by [id number] on 04/30/2025 04:30:48. Hct 30.3(L) 35.6 - 45.5 % [facility] ([place]) Plt 156 150 - 400 K/cumm [facility] ([place]) MPV 10.1 9.1 - 12.3 fL [facility] ([place]) RBC 3.14(L) 3.90 - 5.20 M/cumm [facility] ([place]) MCV 96.5(H) 81.3 - 96.4 fL [facility] ([place]) MCH 31.2 27.1 - 33.3 pg [facility] ([place]) MCHC 32.3 32.3 - 35.7 g/dL [facility] ([place]) RDW CV 13.1 11.1 - 14.9 % [facility] ([place]) RDW SD 46.4 35.7 - 48.1 fL [facility] NRBC abs 0.00 0.00 - 0.01 K/cumm [facility] Blood 04/30/2025 4:06 AM CDT 04/30/2025 4:18 AM CDT us Misael Ellis MD LAB BLOOD ORDERABLES Final [facility]u lt [facility] 1 [facility] [place] [address] * (ABNORMAL) Comprehensive metabolic panel (04/30/2025 4:06 AM CDT) Sodium 136 135 - 145 mmol/L [facility] Potassium, pl 3.8 3.3 - 4.9 mmol/L [facility] ([place]) Chloride 104 97 - 110 mmol/L [facility] ([place]) CO2 21(L) 22 - 32 mmol/L [facility] ([place]) Anion gap 11 2 - 15 mmol/L [facility] BUN 20 6 - 25 mg/dL [facility] Creatinine 0.69 0.60 - 1.10 mg/dL [facility] ([place]) Glucose 230(H) 70 - 199 mg/dL [facility] Comment: Interpretive Data Fasting glucose >/= 126 mg/dl is diagnostic for diabetes. Fasting is defined as no caloric intake for at least 8 hours. Fasting glucose between 100 mg/dl to 125 mg/dl is diagnostic of prediabetes. In a patient with classic symptoms of hyperglycemia or hyperglycemic crisis, a random glucose >/= 200 mg/dl is diagnostic for diabetes. In the absence of unequivocal hyperglycemia, results should be confirmed by repeat testing. The classification and Diagnosis of Diabetes Diabetes Care 2021; 46: S19-S40. Current interpretive data was last revised 2022. Calcium 8.1(L) 8.5 - 10.3 mg/dL [facility] ([place]) Bilirubin, total 0.6 0.1 - 1.2 mg/dL [facility] ([place]) Protein, pl 5.8(L) 6.5 - 8.5 g/dL [facility] ([place]) Albumin 3.2(L) 3.5 - 5.0 g/dL [facility] ([place]) Alk phos 46 40 - 130 Units/L [facility] ([place]) ALT 16 7 - 45 Units/L [facility] ([place]) AST 25 10 - 45 Units/L [facility] ([place]) Blood 04/30/2025 4:06 AM CDT 04/30/2025 4:18 AM CDT us Misael Ellis MD LAB BLOOD ORDERABLES Final Resu lt Performing Organization Address [facility] Co de Phone Number [facility] ([place]) 1 [facility] [place] [address] * (ABNORMAL) POCT glucose (04/30/2025 2:03 AM CDT) Glucose, POC 225(H) 70 - 199 mg/dL Comment:Glu2: RN/ Notified Blood 04/30/2025 2:03 AM CDT 04/30/2025 2:03 AM CDT us Brad Wilson MD LAB POCT ORDERABLES - DEVICE Fin al Result Performing Organization Address City/[facility] Co de Phone Number [facility] ([place]) 1 [facility] [place] [address] * (ABNORMAL) POCT glucose (04/29/2025 8:08 PM CDT) Glucose, POC 257(H) 70 - 199 mg/dL Blood 04/29/2025 8:08 PM CDT 04/29/2025 8:08 PM CDT us Brad Wilson MD LAB POCT ORDERABLES - DEVICE Fin al Result Performing Organization Address [facility]/State/[facility] Co de Phone Number [facility] [place] 1 [facility] [place] [address] * XR Shoulder Right 2 or More Views (04/29/2025 5:05 PM CDT) Anatomical Region Laterality Modality Upper Extremities, Shoulder Right Comp uted Radiography 04/29/2025 5:20 PM CDT Narrative 04/29/2025 5:22 PM CDT EXAM DESCRIPTION: XR SHOULDER RIGHT 2 OR MORE VIEWS REASON FOR STUDY: Pain in Arm, Right Fall on April 27. Initial encounter TECHNIQUE: 3 radiographic view(s) of the right shoulder . COMPARISON: Chest radiographs 04/27/2025 FINDINGS: There is a questionable nondisplaced fracture of the distal right clavicle. There is no shoulder dislocation. The glenohumeral relationship is normal. There are mild osteoarthritic changes of the glenohumeral joint and moderate osteoarthritic changes of the acromioclavicular joint. Visualized portions of the right hemithorax are unremarkable. IMPRESSION: Questionable nondisplaced fracture of the distal right clavicle. Recommend correlation with point tenderness and dedicated right clavicle radiographs. THIS IS AN ELECTRONICALLY VERIFIED FINAL REPORT 04/29/2025 5:22 PM - Electronically signed by Didier Dickerson M.D. AM: AM Report ID: [id number] Reading Location: [place] [address] Procedure Note Didier Dickerson MD - 04/29/2025 EXAM DESCRIPTION: XR SHOULDER RIGHT 2 OR MORE VIEWS REASON FOR STUDY: Pain in Arm, Right Fall on April 27. Initial encounter TECHNIQUE: 3 radiographic view(s) of the right shoulder . COMPARISON: Chest radiographs 04/27/2025 FINDINGS: There is a questionable nondisplaced fracture of the distal rightclavicle. There is no shoulder dislocation. The glenohumeral relationship isnormal. There are mild osteoarthritic changes of the glenohumeral joint andmoderate osteoarthritic changes of the acromioclavicular joint. Visualizedportions of the right hemithorax are unremarkable. IMPRESSION: Questionable nondisplaced fracture of the distal right clavicle. Recommend correlation with point tenderness and dedicated right clavicleradiographs. THIS IS AN ELECTRONICALLY VERIFIED FINAL REPORT 04/29/2025 5:22 PM - Electronically signed by Didier Dickerson M.D. AM: AM Report ID: [id number] Reading Location: [place] [address] Brad Wilson MD IMG XR PROCEDURES Final Result * (ABNORMAL) POCT glucose (04/29/2025 3:51 PM CDT) Glucose, POC 248(H) 70 - 199 mg/dL Blood 04/29/2025 3:51 PM CDT 04/29/2025 3:51 PM CDT Brad Wilson MD LAB POCT ORDERABLES - DEVICE Fin al Result Performing Organization Address City/State/[facility] Co de Phone Number [facility] ([place]) [address] [place] [address] Department [place] [address] * Surgical pathology (04/29/2025 1:38 PM CDT) Tissue (Bone Fragment(s),) 04/29/2025 12:18 PM CDT Narrative [facility]OLOGY [facility] ([place]) - 05/01/2025 1:29 PM CDT EPIC results best viewed via link to PDF [facility] Department of Pathology [address] [place] [id number] Note to Patients: This report may contain a detailed description of human tissue sent by a health care provider to the laboratory for pathologic evaluation. The content of this report is essential for diagnosis and may provide important critical findings. This information may be unfamiliar to patients to review without a medical professional present. It is advised that the patient review this report in the presence of a health care provider who can answer questions and explain the details. Final Report Patient Name: ZULMA DEVINE Address: [address] [place] [address] Gender: F : 1945 (Age: 79) Service: Surgery Location: [facility] Hospital #: [id number] Patient Type: ABBEY Taken: 04/29/2025 Received: 04/29/2025 Accessioned: 04/29/2025 Reported: 05/01/2025 Physician(s):Dr. Jeffrey Hernandez M.D. 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 Clinical correlation and continued follow-up recommended. Clinical History: Right hip fracture. Right hip hemiarthroplasty vs right total arthroplasty, anterior approach. Gross Description: The container is labeled ZULMA DEVINE and right hip bone and tissue fragments. It is a 4.7 cm in diameter femoral head and separate pieces of bone. The articular surface of the femoral head is smooth. The femoral neck margin is ragged and hemorrhagic. The specimen is bisected revealing hemorrhage and softening with no subchondral gross lesions. Engineer Assistant sections of head and neck are submitted in one cassette after decalcification. Preeti Godinez/Faisal Villalobos M.D. REPORT IMAGES AND SCANNED DOCUMENTS, IF INCLUDED, ONLY VIEWABLE IN PDF VERSION OF REPORT The performance characteristics of some immunohistochemical stains, fluorescence in-situ hybridization tests and immunophenotyping by flow cytometry cited in this report (if any) were determined by the Surgical Pathology Department at [facility] as part of an ongoing quality assurance tester program and in compliance with federally mandated regulations drawn from the Clinical Laboratory Improvement Act of 1988 (CLIA '88). Some of these tests rely on the use of analyte specific reagents and are subject to specific labeling requirements by the US Food and Drug Administration. Such diagnostic tests may only be performed in a facility that is certified by the Department of Health and Human Services as a high complexity laboratory under CLIA '88. The FDA has determined that such clearance or approval is not necessary. This test is used for clinical purposes. It should not be regarded as investigational or for research. Nevertheless, federal rules concerning the medical use of analyte specific reagents require that the following disclaimer be attached to the report: This test was developed and its performance characteristics determined by the Surgical Pathology Department [facility]. It has not been cleared or approved by the U. S. Food and Drug Administration. Note for decalcified specimens: This assay has not been validated on decalcified tissues. Results should be interpreted with caution given the possibility of false negativity on decalcified specimens Jeffrey Hernandez MD LAB PATHOLOGY ORDERABLES Final Result [facility] ([facility]) [address] [place] [id number] * XR Pelvis Ortho View (04/29/2025 1:35 PM CDT) Anatomical Region Laterality Modality Body, Pelvis N/A Computed Radiogr aphy 04/29/2025 2:06 PM CDT Narrative 04/29/2025 2:07 PM CDT EXAM DESCRIPTION: 1. XR PELVIS ORTHO VIEW REASON FOR STUDY: in pacu s/p laina. Right hip osteoarthritis. Post right hip replacement FINDINGS: Single-view submitted with comparison 02/26/2025. Interval right total hip arthroplasty in expected position. No acute fracture. Mild left hip osteoarthritis. IMPRESSION: 1. Interval right total hip arthroplasty in expected position. THIS IS AN ELECTRONICALLY VERIFIED FINAL REPORT 04/29/2025 2:07 PM - Electronically signed by Mohinder Enriquez M.D. MF: GRIFFIN Report ID: [id number] Reading Location: [id number] Procedure Note Mohinder Enriquez MD - 04/29/2025 EXAM DESCRIPTION: 1. XR PELVIS ORTHO VIEW REASON FOR STUDY: in pacu s/p laina. Right hip osteoarthritis. Post right hip replacement FINDINGS: Single-view submitted with comparison 02/26/2025. Interval right total hip arthroplasty in expected position. No acute fracture. Mild left hip osteoarthritis. IMPRESSION: 1. Interval right total hip arthroplasty in expected position. THIS IS AN ELECTRONICALLY VERIFIED FINAL REPORT 04/29/2025 2:07 PM - Electronically signed by Mohinder Enriquez M.D. MF: GRIFFIN Report ID: [id number] Reading Location: [place] [address] us Jamila HERNÁNDEZ IMG XR PROCEDURES Fin al Result * POCT glucose (04/29/2025 1:20 PM CDT) Glucose, POC 191 70 - 199 mg/dL Blood 04/29/2025 1:20 PM CDT 04/29/2025 1:20 PM CDT Brad Wilson MD LAB POCT ORDERABLES - DEVICE Fin al Result Performing Organization Address [facility] Co de Phone Number [facility] ([place]) 1 [facility] Department of Laboratories [place] [id number] * [place] Fluoroscopy < 1 Hour (04/29/2025 12:56 PM CDT) Narrative [facility] - 04/29/2025 12:57 PM CDT The images from this study are not interpreted by Radiology. Please refer to the physician's procedure / OR operative note. Jeffrey Hernandez MD IMG FLUOROSCOPY PROCEDUR ES Final Result Performing Organization Address [facility] Co de Phone Number [facility] * XR Hip Right 1 View (04/29/2025 12:56 PM CDT) Anatomical Region Laterality Modality Lower Extremities, Hip, Pelvis Right R adio Fluoroscopy 04/29/2025 2:07 PM CDT Narrative 04/29/2025 2:07 PM CDT EXAM DESCRIPTION: 1. XR HIP RIGHT 1 VIEW REASON FOR STUDY: pain FINDINGS: Multiple fluoroscopic images consisting of a single view(s) submitted with comparison 04/27/2025 . Reference air kerma equals 0.55 mGy. Fluoroscopic images demonstrate an in progress right total hip arthroplasty placement . Soft tissue gas is present. IMPRESSION: 1. In progress right total hip arthroplasty placement. THIS IS AN ELECTRONICALLY VERIFIED FINAL REPORT 04/29/2025 2:07 PM - Electronically signed by Mohinder Enriquez M.D. MF: GRIFFIN Report ID: [id number] Reading Location: [id number] Procedure Note Mohinder Enriquez MD - 04/29/2025 EXAM DESCRIPTION: 1. XR HIP RIGHT 1 VIEW REASON FOR STUDY: pain FINDINGS: Multiple fluoroscopic images consisting of a single view(s) submittedwith comparison 04/27/2025 . Reference air kerma equals 0.55 mGy. Fluoroscopic images demonstrate an in progress right total hiparthroplasty placement . Soft tissue gas is present. IMPRESSION: 1. In progress right total hip arthroplasty placement. THIS IS AN ELECTRONICALLY VERIFIED FINAL REPORT 04/29/2025 2:07 PM - Electronically signed by Mohinder Enriquez M.D. MF: GRIFFIN Report ID: [id number] Reading Location: [id number] us Jeffrey Hernandez MD IMG XR PROCEDURES Final Result * POCT glucose (04/29/2025 12:06 PM CDT) Glucose, POC 181 70 - 199 mg/dL Blood 04/29/2025 12:0 6 PM CDT 04/29/2025 12:06 PM CDT us Brad Wilson MD LAB POCT ORDERABLES - DEVICE Fin al Result [facility] [place]) 1 [facility] [place] [address] * Spinal Block (04/29/2025 11:49 AM CDT) Narrative William Bennett CRNA - 04/29/2025 11:49 AM CDT William Bennett CRNA 04/29/2025 11:53 AM Spinal Block Patient location: OR End time: 04/29/2025 11:37 AM Reason for block: primary anesthetic Staff: Placed by: Anesthesiologist: James Pickens DO Procedure prep: Preprocedure checklist: patient identified, procedure contraindications assessed, procedure consent, surgical consent, IV checked, risks, benefits and alternatives discussed, monitors and equipment checked and timeout performed Patient position: left lateral decubitus Procedure performed while patient: sedate with meaningful contact Monitoring: oximetry (Avoided taking BP during procedure in order to avoid site contamination by BP cord) Supplemental oxygen schedule: Avoided supplemental oxygen during procedure in order to prevent site contamination by oxygen tubing. Prep solution: chlorhexadine/alcohol PPE: provider hat/mask, sterile gloves and sterile drape Skin infiltrated with lidocaine 1%: yes Spinal: Approach: left paramedian Introducer used: no Location: L3-4 Other location: L4-L5 Spinal injection: CSF demonstrated, no aspiration of heme and no paresthesias noted Number of attempts: greater than 3 attempts Spinal Needle: Needle type: Jose Needle gauge: 22 G Needle length: 9 cm Assessment: Sensory deficit - left: full eval pending Sensory deficit - right: full eval pending Events: patient tolerated procedure well with no complications Additional comments: First 2 attempts by MARCIE. Following attempts, including successful attempt by MDA. James Pickens DO ANESTHESIA ORDERABL ES Final Result * (ABNORMAL) POCT glucose (04/29/2025 10:36 AM CDT) Glucose, POC 299(H) 70 - 199 mg/dL Blood 04/29/2025 10:3 6 AM CDT 04/29/2025 10:36 AM CDT us Brad Wilson MD LAB POCT ORDERABLES - DEVICE Fin al Result [facility] [place]) 1 [facility] [place] [address] * US Lower Extremity Right Limited (04/29/2025 10:00 AM CDT) Anatomical Region Laterality Modality Lower Extremities Right Ultrasound 04/29/2025 5:22 PM CDT Narrative 04/29/2025 5:24 PM CDT EXAM DESCRIPTION: US LOWER EXTREMITY RIGHT LIMITED REASON FOR STUDY: fluid collection on right thigh TECHNIQUE: A Dynamic assessment was performed of the right hip/thigh region by the roof fixer, with selected grayscale and color Doppler images acquired and recorded in PACS. COMPARISON: None FINDINGS: There is no obvious fluid collection seen in the right hip thigh region of interest. Evaluation was somewhat limited due to mobility status and pain. IMPRESSION: No obvious fluid collection seen in the right hip/thigh region of interest. THIS IS AN ELECTRONICALLY VERIFIED FINAL REPORT 04/29/2025 5:24 PM - Electronically signed by Didier Dickerson M.D. AM: AM Report ID: [id number] Reading Location: [id number] Procedure Note Didier Dickerson MD - 04/29/2025 EXAM DESCRIPTION: US LOWER EXTREMITY RIGHT LIMITED REASON FOR STUDY: fluid collection on right thigh TECHNIQUE: A Dynamic assessment was performed of the right hip/thighregion by the roof fixer, with selected grayscale and color Doppler imagesacquired and recorded in PACS. COMPARISON: None FINDINGS: There is no obvious fluid collection seen in the right hip thigh region of interest. Evaluation was somewhat limited due to mobility status andpain. IMPRESSION: No obvious fluid collection seen in the right hip/thigh region ofinterest. THIS IS AN ELECTRONICALLY VERIFIED FINAL REPORT 04/29/2025 5:24 PM - Electronically signed by Didier Dickerson M.D. AM: AM Report ID: [id number] Reading Location: [id number] us Misael Ellis MD IMG US PROCEDURES Final Result * ECG 12 lead (04/29/2025 8:26 AM CDT) 04/29/2025 8:[address] [facility] - 04/30/2025 6:51 AM CDT Vent Rate: 76 bpm RR Interval: 781 msec NC Interval: 167 msec QRS Duration: 94 msec QT Interval: 388 msec QTC Interval: 419 msec P-R-T [place]: 60 - 12 - 67 degrees IMPRESSION: SINUS RHYTHM NONSPECIFIC T-WAVE ABNORMALITY No prior EKG for comparison Electronically Signed By: Dr Robert Cardenas us Brad Wilson MD ECG ORDERABLES Final Result [facility] * (ABNORMAL) POCT glucose (04/29/2025 8:02 AM CDT) Glucose, POC 276(H) 70 - 199 mg/dL Blood 04/29/2025 8:02 AM CDT 04/29/2025 8:02 AM CDT us Brad Wilson MD LAB POCT ORDERABLES - DEVICE Fin al Result [facility] ([place]) 1 [facility] [place] [address] * eGFR (04/29/2025 4:26 AM CDT) eGFR 90 >=60 mL/min/1. 73 m2 Comment: Interpretive Data Reference Interval Normal >/= 90 mL/min/1.73m2 Mildly decreased* 60 - 89 mL/min/1.73m2 Mildly to moderately decreased 45 - 59 mL/min/1.73m2 Moderately to severely decreased 30 - 44 mL/min/1.73m2 Severely decreased 15 - 29 mL/min/1.73m2 Kidney Failure < 15 mL/min/1.73m2 *Relative to young adult level Estimated glomerular filtration rate is determined by the 2020 CKD-EPI equation recommended by the National Kidney Foundation (A Unifying Approach to GFR Estimation: Recommendations of the NKF-ASK Task Force on Reassessing the Inclusion of Race in Diagnosing Kidney Disease, JASN 2020). The CKD-EPI equation should not be used for patients with unstable renal function and has not been validated in children and those over 70. Current interpretive data was last reviewed 2021. Blood 04/29/2025 4:26 AM CDT 04/29/2025 5:40 AM CDT us Misael Ellis MD LAB BLOOD ORDERABLES Final Resu lt [facility] ([place]) 1 [facility] [place] [address] * (ABNORMAL) Differential, auto (04/29/2025 4:26 AM CDT) Neutrophil abs 8.13(H) 1.50 - 6.50 K/cumm Imm gran abs 0.05 0.00 - 0.10 K/cumm [facility] ([facility]) Lymphocyte abs 2.10 0.80 - 3.30 K/cumm [facility] ([place]) Monocyte abs 1.54(H) 0.20 - 0.80 K/cumm [facility] ([place]) Eosinophil abs 0.23 0.00 - 0.50 K/cumm [facility] ([place]) Basophil abs 0.04 0.00 - 0.10 K/cumm [facility] ([place]) Neutrophil pct 67.3 % [facility] ([place]) Comment: Interpretive Data Percent cell count reference ranges are not reported, since discordance with absolute values may lead to misinterpretation of CBC data. Current Interpretive Data was last revised on 2018. Imm gran pct 0.4 % [facility] ([place]) Comment: Interpretive Data Percent cell count reference ranges are not reported, since discordance with absolute values may lead to misinterpretation of CBC data. Current Interpretive Data was last revised on 2018. Lymphocyte pct 17.4 % [facility] ([place]) Comment: Interpretive Data Percent cell count reference ranges are not reported, since discordance with absolute values may lead to misinterpretation of CBC data. Current Interpretive Data was last revised on 2018. Monocyte pct 12.7 % [facility] ([place]) Comment: Interpretive Data Percent cell count reference ranges are not reported, since discordance with absolute values may lead to misinterpretation of CBC data. Current Interpretive Data was last revised on 2018. Eosinophil pct 1.9 % [facility] ([place]) Comment: Interpretive Data Percent cell count reference ranges are not reported, since discordance with absolute values may lead to misinterpretation of CBC data. Current Interpretive Data was last revised on 2018. Basophil pct 0.3 % [facility] ([place]) Comment: Interpretive Data Percent cell count reference ranges are not reported, since discordance with absolute values may lead to misinterpretation of CBC data. Current Interpretive Data was last revised on 2018. Blood 04/29/2025 4:26 AM CDT 04/29/2025 5:38 AM CDT us Misael Ellis MD LAB BLOOD ORDERABLES Final Resu lt [facility] ([place]) 1 [facility] [place] [address] * (ABNORMAL) CBC with auto differential (04/29/2025 4:26 AM CDT) WBC 12.09(H) 3.80 - 9.90 K/cumm Hgb 13.1 11.9 - 15.5 g/dL [facility] ([place]) Hct 40.1 35.6 - 45.5 % [facility] ([place]) Plt 197 150 - 400 K/cumm [facility] ([place]) MPV 10.6 9.1 - 12.3 fL [facility] ([facility]) RBC 4.19 3.90 - 5.20 M/cumm [facility] ([place]) MCV 95.7 81.3 - 96.4 fL [facility] ([place]) MCH 31.3 27.1 - 33.3 pg [facility] ([place]) MCHC 32.7 32.3 - 35.7 g/dL [facility] ([place]) RDW CV 13.1 11.1 - 14.9 % [facility] ([place]) RDW SD 45.0 35.7 - 48.1 fL [facility] ([place]) NRBC abs 0.00 0.00 - 0.01 K/cumm [facility] ([place]) Blood 04/29/2025 4:26 AM CDT 04/29/2025 5:38 AM CDT us Misael Ellis MD LAB BLOOD ORDERABLES Final Resu lt [facility] ([place]) 1 [facility] [place] [address] * (ABNORMAL) Comprehensive metabolic panel (04/29/2025 4:26 AM CDT) Sodium 134(L) 135 - 145 mmol/L [facility] ([place]) Potassium, pl 4.3 3.3 - 4.9 mmol/L [facility] ([place]) Chloride 97 97 - 110 mmol/L [facility] ([place]) CO2 25 22 - 32 mmol/L [facility] ([place]) Anion gap 12 2 - 15 mmol/L [facility] ([place]) BUN 18 6 - 25 mg/dL [facility] ([place]) Creatinine 0.66 0.60 - 1.10 mg/dL [facility] ([place]) Glucose 258(H) 70 - 199 mg/dL [facility] ([place]) Comment: Interpretive Data Fasting glucose >/= 126 mg/dl is diagnostic for diabetes. Fasting is defined as no caloric intake for at least 8 hours. Fasting glucose between 100 mg/dl to 125 mg/dl is diagnostic of prediabetes. In a patient with classic symptoms of hyperglycemia or hyperglycemic crisis, a random glucose >/= 200 mg/dl is diagnostic for diabetes. In the absence of unequivocal hyperglycemia, results should be confirmed by repeat testing. The classification and Diagnosis of Diabetes Diabetes Care 2021; 46: S19-S40. Current interpretive data was last revised 2022. Calcium 9.2 8.5 - 10.3 mg/dL [facility] ([place]) Bilirubin, total 1.1 0.1 - 1.2 mg/dL [facility] ([place]) Protein, pl 7.2 6.5 - 8.5 g/dL [facility] ([place]) Albumin 4.0 3.5 - 5.0 g/dL [facility] ([place]) Alk phos 61 40 - 130 Units/L [facility] ([place]) ALT 24 7 - 45 Units/L [facility] ([place]) AST 26 10 - 45 Units/L [facility] ([place]) Blood 04/29/2025 4:26 AM CDT 04/29/2025 5:40 AM CDT us Misael Ellis MD LAB BLOOD ORDERABLES Final Resu lt Performing Organization Address City/[facility]/ZIP Co de Phone Number [facility] ([place]) 1 [facility] [employer] [address] * (ABNORMAL) POCT glucose (04/29/2025 2:18 AM CDT) Glucose, POC 238(H) 70 - 199 mg/dL Blood 04/29/2025 2:18 AM CDT 04/29/2025 2:18 AM CDT Brad Wilson MD LAB POCT ORDERABLES - DEVICE Fin al Result Performing Organization Address [facility] Co de Phone Number [facility] ([place]) 1 [facility] [place] [address] * (ABNORMAL) POCT glucose (04/28/2025 8:16 PM CDT) Glucose, POC 246(H) 70 - 199 mg/dL Blood 04/28/2025 8:16 PM CDT 04/28/2025 8:16 PM CDT Brad Wilson MD LAB POCT ORDERABLES - DEVICE Fin al Result Performing Organization Address City/[facility]/ZIP Co de Phone Number [facility] ([place]) [address] [place] [address] * (ABNORMAL) POCT glucose (04/28/2025 4:46 PM CDT) Glucose, POC 247(H) 70 - 199 mg/dL Blood 04/28/2025 4:46 PM CDT 04/28/2025 4:46 PM CDT Brad Wilson MD LAB POCT ORDERABLES - DEVICE Fin al Result [facility] ([place]) 1 [place] [address] * (ABNORMAL) POCT glucose (04/28/2025 11:23 AM CDT) Glucose, POC 287(H) 70 - 199 mg/dL Comment:Glu2: SHA/ Notified Blood 04/28/2025 11:2 3 AM CDT 04/28/2025 11:23 AM CDT Jovanna Mann MD LAB POCT ORDERABLES - DEV ICE Final Result Performing Organization Address [facility] Co de Phone Number [facility] ([place]) 1 [facility] [place] [address] * (ABNORMAL) POCT glucose (04/28/2025 7:20 AM CDT) Glucose, POC 267(H) 70 - 199 mg/dL Comment:Glu2: SHA/ Notified Blood 04/28/2025 7:20 AM CDT 04/28/2025 7:20 AM CDT Jovanna Mann MD LAB POCT ORDERABLES - DEV ICE Final Result [facility] ([place]) 1 [facility] [place] [address] * (ABNORMAL) Lactate (04/28/2025 5:09 AM CDT) Lactate 2.1(H) 0.7 - 2.0 mmol/L Blood 04/28/2025 5:09 AM CDT 04/28/2025 5:15 AM CDT Misael Ellis MD LAB BLOOD ORDERABLES Final Resu lt [facility] ([place]) 1 [facility] [place] [address] * eGFR (04/28/2025 5:09 AM CDT) eGFR 90 >=60 mL/min/1. 73 m2 Comment: Interpretive Data Reference Interval Normal >/= 90 mL/min/1.73m2 Mildly decreased* 60 - 89 mL/min/1.73m2 Mildly to moderately decreased 45 - 59 mL/min/1.73m2 Moderately to severely decreased 30 - 44 mL/min/1.73m2 Severely decreased 15 - 29 mL/min/1.73m2 Kidney Failure < 15 mL/min/1.73m2 *Relative to young adult level Estimated glomerular filtration rate is determined by the 2020 CKD-EPI equation recommended by the National Kidney Foundation (A Unifying Approach to GFR Estimation: Recommendations of the NKF-ASK Task Force on Reassessing the Inclusion of Race in Diagnosing Kidney Disease, JASN 2020). The CKD-EPI equation should not be used for patients with unstable renal function and has not been validated in children and those over 70. Current interpretive data was last reviewed 2021. Blood 04/28/2025 5:09 AM CDT 04/28/2025 5:15 AM CDT Misael Ellis MD LAB BLOOD ORDERABLES Final Resu lt [facility] ([place]) 1 [facility] [place] [address] * (ABNORMAL) Differential, auto (04/28/2025 5:09 AM CDT) Neutrophil abs 8.03(H) 1.50 - 6.50 K/cumm Imm gran abs 0.03 0.00 - 0.10 K/cumm [facility] ([place]) Lymphocyte abs 1.93 0.80 - 3.30 K/cumm [facility] ([place]) Monocyte abs 1.10(H) 0.20 - 0.80 K/cumm [facility] ([place]) Eosinophil abs 0.26 0.00 - 0.50 K/cumm [facility] ([place]) Basophil abs 0.03 0.00 - 0.10 K/cumm [facility] ([place]) Neutrophil pct 70.4 % [facility] ([place]) Comment: Interpretive Data Percent cell count reference ranges are not reported, since discordance with absolute values may lead to misinterpretation of CBC data. Current Interpretive Data was last revised on 2018. Imm gran pct 0.3 % [facility] ([place]) Comment: Interpretive Data Percent cell count reference ranges are not reported, since discordance with absolute values may lead to misinterpretation of CBC data. Current Interpretive Data was last revised on 2018. Lymphocyte pct 17.0 % [facility] ([place]) Comment: Interpretive Data Percent cell count reference ranges are not reported, since discordance with absolute values may lead to misinterpretation of CBC data. Current Interpretive Data was last revised on 2018. Monocyte pct 9.7 % [facility] ([place]) Comment: Interpretive Data Percent cell count reference ranges are not reported, since discordance with absolute values may lead to misinterpretation of CBC data. Current Interpretive Data was last revised on 2018. Eosinophil pct 2.3 % [facility] ([place]) Comment: Interpretive Data Percent cell count reference ranges are not reported, since discordance with absolute values may lead to misinterpretation of CBC data. Current Interpretive Data was last revised on 2018. Basophil pct 0.3 % [facility] ([place]) Comment: Interpretive Data Percent cell count reference ranges are not reported, since discordance with absolute values may lead to misinterpretation of CBC data. Current Interpretive Data was last revised on 2018. Blood 04/28/2025 5:09 AM CDT 04/28/2025 5:15 AM CDT us Misael Ellis MD LAB BLOOD ORDERABLES Final Resu lt [facility] ([place]) 1 [facility] [place] [address] * (ABNORMAL) CBC with auto differential (04/28/2025 5:09 AM CDT) WBC 11.38(H) 3.80 - 9.90 K/cumm Hgb 12.6 11.9 - 15.5 g/dL [facility] ([place]) Hct 38.4 35.6 - 45.5 % [facility] ([place]) Plt 203 150 - 400 K/cumm [facility] ([place]) MPV 9.8 9.1 - 12.3 fL [facility] ([place]) RBC 4.08 3.90 - 5.20 M/cumm [facility] ([place]) MCV 94.1 81.3 - 96.4 fL [facility] ([place]) MCH 30.9 27.1 - 33.3 pg [facility] ([place]) MCHC 32.8 32.3 - 35.7 g/dL [facility] ([place]) RDW CV 12.6 11.1 - 14.9 % [facility] ([place]) RDW SD 43.8 35.7 - 48.1 fL [facility] ([place]) NRBC abs 0.00 0.00 - 0.01 K/cumm [facility] ([place]) Blood 04/28/2025 5:09 AM CDT 04/28/2025 5:15 AM CDT us Misael Ellis MD LAB BLOOD ORDERABLES Final Resu lt [facility] ([place]) 1 [facility] [place] [address] * Blood culture Blood (04/28/2025 5:09 AM CDT) Report Final Report: No growth Comment:Testing performed by : [facility], [address] [place]., [address] Blood 04/28/2025 5:09 AM CDT 04/28/2025 9:15 AM CDT Narrative [facility] ([place]) - 05/02/2025 12:00 PM CDT From a different site than #1. Collection->Peripheral 1. Blood cultures are incubated for 4 days on a continuously monitored blood culture system. The first report of a negative culture is issued within 24 hours of receipt of the specimen in the laboratory. 2. Positive culture results are reported as soon as they are detected. 3. The most important factor for detection of microbes in the setting of bloodstream infection is the volume of blood submitted for culture. Failure to collect an optimal blood volume can result in false negative blood cultures. 4. For pediatric patients, the recommended blood volume to collect follows a weight based strategy. See the electronic test catalog for collection instructions. 5. For positive blood cultures, a rapid molecular test may be performed for organism identification using the willa ePlex blood culture identification panel for gram positive (BCID-GP) and gram negative (BCID-GN) organisms. This nucleic acid amplification test detects microbial DNA in positive blood culture broth. This assay has been cleared by the [place] Food and Drug Administration and its performance characteristics have been verified by the [facility] Microbiology Laboratory. For questions about this culture, contact the Microbiology Laboratory at [phone]. Interpretive data was last revised on 24. Misael Ellis MD LAB MICROBIOLOGY - GENERAL [place] Final Result [facility] ([place]) 1 [facility] [place] [address] * Blood culture Blood (04/28/2025 5:09 AM CDT) Report Final Report: No growth Comment:Testing performed by : [facility], 1 [place]., [address] Blood 04/28/2025 5:09 AM CDT 04/28/2025 9:15 AM CDT Narrative [facility]TA ABBEY ([place]) - 05/02/2025 12:00 PM CDT Collection->Peripheral 1. Blood cultures are incubated for 4 days on a continuously monitored blood culture system. The first report of a negative culture is issued within 24 hours of receipt of the specimen in the laboratory. 2. Positive culture results are reported as soon as they are detected. 3. The most important factor for detection of microbes in the setting of bloodstream infection is the volume of blood submitted for culture. Failure to collect an optimal blood volume can result in false negative blood cultures. 4. For pediatric patients, the recommended blood volume to collect follows a weight based strategy. See the electronic test catalog for collection instructions. 5. For positive blood cultures, a rapid molecular test may be performed for organism identification using the willa ePlex blood culture identification panel for gram positive (BCID-GP) and gram negative (BCID-GN) organisms. This nucleic acid amplification test detects microbial DNA in positive blood culture broth. This assay has been cleared by the [place] Food and Drug Administration and its performance characteristics have been verified by the [facility] Microbiology Laboratory. For questions about this culture, contact the Microbiology Laboratory at [phone]. Interpretive data was last revised on 24. Misael Ellis MD LAB MICROBIOLOGY - [facility] [place] Final Result [facility] ([place]) 1 [facility] [place] [address] * (ABNORMAL) Comprehensive metabolic panel (04/28/2025 5:09 AM CDT) Sodium 136 135 - 145 mmol/L [facility] ([place]) Potassium, pl 4.2 3.3 - 4.9 mmol/L [facility] ([place]) Chloride 99 97 - 110 mmol/L [facility] ([place]) CO2 25 22 - 32 mmol/L [facility] ([place]) Anion gap 12 2 - 15 mmol/L [facility] ([place]) BUN 16 6 - 25 mg/dL [facility] ([place]) Creatinine 0.68 0.60 - 1.10 mg/dL [facility] ([place]) Glucose 272(H) 70 - 199 mg/dL [facility] ([place]) Comment: Interpretive Data Fasting glucose >/= 126 mg/dl is diagnostic for diabetes. Fasting is defined as no caloric intake for at least 8 hours. Fasting glucose between 100 mg/dl to 125 mg/dl is diagnostic of prediabetes. In a patient with classic symptoms of hyperglycemia or hyperglycemic crisis, a random glucose >/= 200 mg/dl is diagnostic for diabetes. In the absence of unequivocal hyperglycemia, results should be confirmed by repeat testing. The classification and Diagnosis of Diabetes Diabetes Care 2021; 46: S19-S40. Current interpretive data was last revised 2022. Calcium 9.4 8.5 - 10.3 mg/dL [facility] ([place]) Bilirubin, total 0.7 0.1 - 1.2 mg/dL [facility] ([place]) Protein, pl 7.5 6.5 - 8.5 g/dL [facility] ([place]) Albumin 4.4 3.5 - 5.0 g/dL [facility] ([place]) Alk phos 74 40 - 130 Units/L [facility] ([place]) ALT 30 7 - 45 Units/L [facility] ([place]) AST 35 10 - 45 Units/L [facility] ([place]) Blood 04/28/2025 5:09 AM CDT 04/28/2025 5:15 AM CDT Misael Ellis MD LAB BLOOD ORDERABLES Final Resu lt [facility] ([place]) 1 [facility] [place] [address] * (ABNORMAL) POCT glucose (04/28/2025 2:07 AM CDT) Pathologist [facility] Glucose, POC 236(H) 70 - 199 mg/dL Comment:Glu2: RN/ Notified Blood 04/28/2025 2:07 AM CDT 04/28/2025 2:07 AM CDT Jovanna Mann MD LAB POCT ORDERABLES - DEV ICE Final Result [facility] ([place]) 1 [facility] [place] [address] * (ABNORMAL) POCT glucose (04/27/2025 8:43 PM CDT) Glucose, POC 245(H) 70 - 199 mg/dL Comment:Glu2: RN/MD Notified Blood 04/27/2025 8:43 PM CDT 04/27/2025 8:43 PM CDT Jovanna Mann MD LAB POCT ORDERABLES - DEV ICE Final Result Performing Organization Address City/[facility] Co de Phone Number [facility]OT[facility] ([place]) 1 [place] [address] * Urinalysis reflex to microscopic (04/27/2025 7:19 PM CDT) Color, ur Yellow Yellow Clarity, ur Clear Clear [facility] ([place]) Specific gravity, ur 1.011 1.003 - 1.030 [facility] ([place]) pH, urine 7.5 [facility] ([place]) Comment: Interpretive Data U rine pH is affected by diet, medications, systemic acid-base disturbances, and renal tubular function. pH may affect urinary stone formation. For example, urine pH below 6.0 may help reduce the tendency for calcium phosphate stones and pH greater than 6.0 may reduce the tendency for uric acid stone formation. Source: [facility] [employer] Current Interpretive Data was last revised on 2017 Protein, ur ql Negative Negative [facility] ([place]) Glucose, ur ql Negative Negative [facility] ([place]) Ketones, ur Negative Negative [facility] ([place]) Bilirubin, ur Negative Negative [facility] ([place]) Blood, ur Negative Negative [facility] ([place]) Urobilinogen, ur <2.0 <2.0 mg/dL [facility] ([place]) Nitrite, ur Negative Negative [facility] ([place]) Leukocyte esterase, ur Negative Negative [facility] ([place]) UA reflex comment Reflex conditions for microscopic UA not met. [facility] ([place]) Urine 04/27/2025 7:19 PM CDT 04/27/2025 7:22 PM CDT Mohit Clement MD LAB URINE ORDERABLES Final Result Performing Organization Address City/[facility]/ZIP Co de Phone Number [facility] ([place]) 1 [facility] [place] [address] * POCT glucose (04/27/2025 6:17 PM CDT) Glucose, POC 121 70 - 199 mg/dL Blood 04/27/2025 6:17 PM CDT 04/27/2025 6:17 PM CDT Mohit Clement MD LAB POCT ORDERABLES - DEVIC E Final Result Performing Organization Address [facility] Co de Phone Number [facility] ([place]) 1 [facility] [place] [address] * eGFR (04/27/2025 6:10 PM CDT) eGFR >90 >=60 mL/min/1. 73 m2 Comment: Interpretive Data Reference Interval Normal >/= 90 mL/min/1.73m2 Mildly decreased* 60 - 89 mL/min/1.73m2 Mildly to moderately decreased 45 - 59 mL/min/1.73m2 Moderately to severely decreased 30 - 44 mL/min/1.73m2 Severely decreased 15 - 29 mL/min/1.73m2 Kidney Failure < 15 mL/min/1.73m2 *Relative to young adult level Estimated glomerular filtration rate is determined by the 2020 CKD-EPI equation recommended by the National Kidney Foundation (A Unifying Approach to GFR Estimation: Recommendations of the NKF-ASK Task Force on Reassessing the Inclusion of Race in Diagnosing Kidney Disease, JASN 2020). The CKD-EPI equation should not be used for patients with unstable renal function and has not been validated in children and those over 70. Current interpretive data was last reviewed 2021. Blood 04/27/2025 6:10 PM CDT 04/27/2025 6:14 PM CDT Mohit Clement MD LAB BLOOD ORDERABLES Final Result [facility] ([place]) 1 [facility] [place] [address] * (ABNORMAL) Differential, auto (04/27/2025 6:10 PM CDT) Neutrophil abs 10.59(H) 1.50 - 6.50 K/cumm Imm gran abs 0.05 0.00 - 0.10 K/cumm [facility] ([place]) Lymphocyte abs 2.04 0.80 - 3.30 K/cumm [facility] ([place]) Monocyte abs 1.13(H) 0.20 - 0.80 K/cumm [facility] ([place]) Eosinophil abs 0.10 0.00 - 0.50 K/cumm [facility] ([place]) Basophil abs 0.03 0.00 - 0.10 K/cumm [facility] ([place]) Neutrophil pct 76.0 % [facility] ([place]) Comment: Interpretive Data Percent cell count reference ranges are not reported, since discordance with absolute values may lead to misinterpretation of CBC data. Current Interpretive Data was last revised on 2018. Imm gran pct 0.4 % [facility] ([place]) Comment: Interpretive Data Percent cell count reference ranges are not reported, since discordance with absolute values may lead to misinterpretation of CBC data. Current Interpretive Data was last revised on 2018. Lymphocyte pct 14.6 % [facility] ([place]) Comment: Interpretive Data Percent cell count reference ranges are not reported, since discordance with absolute values may lead to misinterpretation of CBC data. Current Interpretive Data was last revised on 2018. Monocyte pct 8.1 % [facility] ([place]) Comment: Interpretive Data Percent cell count reference ranges are not reported, since discordance with absolute values may lead to misinterpretation of CBC data. Current Interpretive Data was last revised on 2018. Eosinophil pct 0.7 % [facility] ([place]) Comment: Interpretive Data Percent cell count reference ranges are not reported, since discordance with absolute values may lead to misinterpretation of CBC data. Current Interpretive Data was last revised on 2018. Basophil pct 0.2 % [facility] ([place]) Comment: Interpretive Data Percent cell count reference ranges are not reported, since discordance with absolute values may lead to misinterpretation of CBC data. Current Interpretive Data was last revised on 2018. Blood 04/27/2025 6:10 PM CDT 04/27/2025 6:14 PM CDT us Mohit Clement MD LAB BLOOD ORDERABLES Final Result [facility] ([place]) 1 [facility] [place] [address] * (ABNORMAL) CBC with auto differential (04/27/2025 6:10 PM CDT) WBC 13.94(H) 3.80 - 9.90 K/cumm Hgb 13.3 11.9 - 15.5 g/dL [facility] ([place]) Hct 39.8 35.6 - 45.5 % [facility] ([place]) Plt 218 150 - 400 K/cumm [facility] ([place]) MPV 9.7 9.1 - 12.3 fL [facility] ([place]) RBC 4.21 3.90 - 5.20 M/cumm [facility] ([place]) MCV 94.5 81.3 - 96.4 fL [facility] ([place]) MCH 31.6 27.1 - 33.3 pg [facility] ([place]) MCHC 33.4 32.3 - 35.7 g/dL [facility] ([place]) RDW CV 12.4 11.1 - 14.9 % [facility] ([place]) RDW SD 42.7 35.7 - 48.1 fL [facility] ([place]) NRBC abs 0.00 0.00 - 0.01 K/cumm [facility] ([place]) Blood 04/27/2025 6:10 PM CDT 04/27/2025 6:14 PM CDT Mohit Clement MD LAB BLOOD ORDERABLES Final Result [facility] ([place]) 1 [facility] [place] [address] * ABO/Rh (04/27/2025 6:10 PM CDT) ABO/Rh O Positive Blood 04/27/2025 6:10 PM CDT 04/27/2025 6:14 PM CDT Narrative [facility]TA POT[facility] ([place]) - 04/27/2025 7:17 PM CDT Has the patient had Daratumumab or Isatuximab in the past 6 months?->Unknown Mohit Clement MD LAB BLOOD BANK TEST ORDERAB LES Final Result Performing Organization Address [facility] Co de Phone Number [facility]TA POT[facility] ([place]) [address] [place] [address] [place] [address] * Protime-INR (04/27/2025 6:10 PM CDT) PT 11.7 9.7 - 13.0 sec [facility] P[facility] ([place]) INR 1.08 0.90 - 1.20 [facility] ([place]) Comment: Interpretive data Oral anticoagulant therapeutic ranges: Venous thromboembolism prophylaxis or treatment: 2.0-3.0 CARDIOLOGY Standard range: 2.0-3.0 High-intensity range: 2.5-3.5 Refer to indication-specific guidelines for appropriate target ranges for prosthetic heart valve replacement. Current interpretive data was last revised on 2019. Blood 04/27/2025 6:10 PM CDT 04/27/2025 6:14 PM CDT Mohit Clement MD LAB BLOOD ORDERABLES Final Result Performing Organization Address City/[facility]/ZIP Co de Phone Number [facility] ([place]) 1 [facility] [place] [address] * Antibody screen (04/27/2025 6:10 PM CDT) Link, indirect, Gel Interpretation Negative ABSC Blood 04/27/2025 6:10 PM CDT 04/27/2025 6:14 PM CDT Narrative [facility] ([place]) - 04/27/2025 7:17 PM CDT Has the patient had Daratumumab or Isatuximab in the past 6 months?->Unknown Mohit Clement MD LAB BLOOD BANK TEST ORDERAB LES Final Result Performing Organization Address [facility] Co de Phone Number K[facility]ETTA POTTER ([place]) 1 [facility] [address] * Comprehensive metabolic panel (04/27/2025 6:10 PM CDT) Pathologist [facility] Sodium 139 135 - 145 mmol/L [facility] ([place]) Potassium, pl 3.9 3.3 - 4.9 mmol/L [facility] ([place]) Chloride 101 97 - 110 mmol/L [facility] ([place]) CO2 25 22 - 32 mmol/L [facility] ([place]) Anion gap 13 2 - 15 mmol/L [facility] ([place]) BUN 15 6 - 25 mg/dL [facility] ([place]) Creatinine 0.64 0.60 - 1.10 mg/dL [facility] ([place]) Glucose 131 70 - 199 mg/dL [facility] ([place]) Comment: Interpretive Data Fasting glucose >/= 126 mg/dl is diagnostic for diabetes. Fasting is defined as no caloric intake for at least 8 hours. Fasting glucose between 100 mg/dl to 125 mg/dl is diagnostic of prediabetes. In a patient with classic symptoms of hyperglycemia or hyperglycemic crisis, a random glucose >/= 200 mg/dl is diagnostic for diabetes. In the absence of unequivocal hyperglycemia, results should be confirmed by repeat testing. The classification and Diagnosis of Diabetes Diabetes Care 2022; 46: S19-S40. Current interpretive data was last revised 2022. Calcium 10.3 8.5 - 10.3 mg/dL [facility] ([place]) Bilirubin, total 0.5 0.1 - 1.2 mg/dL [facility] ([place]) Protein, pl 7.7 6.5 - 8.5 g/dL [facility] ([place]) Albumin 4.4 3.5 - 5.0 g/dL [facility] ([place]) Alk phos 83 40 - 130 Units/L [facility] ([place]) ALT 35 7 - 45 Units/L [facility] ([place]) AST 42 10 - 45 Units/L [facility] ([place]) Blood 04/27/2025 6:10 PM CDT 04/27/2025 6:14 PM CDT us Mohit Clement MD LAB BLOOD ORDERABLES Final Result [facility] ([place]) 1 [facility] [place] [address] * XR Hips Bilateral 5 or More Views W Pelvis (04/27/2025 5:01 PM CDT) Anatomical Region Laterality Modality Lower Extremities, Hip, Pelvis Bilateral C omputed Radiography 04/27/2025 5:20 PM CDT Narrative 04/27/2025 5:22 PM CDT EXAM DESCRIPTION: XR HIPS BILATERAL 5 OR MORE VIEWS W PELVIS REASON FOR STUDY: accidental fall Pt was brought in via EMS with complaints of right hip pain after a fall in a parking lot at the [facility]. Pt denies LOC, head injury or anticoagulation use. Pt states she slipped on a wet man hole cover. TECHNIQUE: Five views of the pelvis and hips COMPARISON: 11/10/2024 FINDINGS: The bones are somewhat osteopenic. Mild degenerative changes are seen of the hips. Fracture of the right femoral neck is evident with mild impaction at the fracture site. Joint spaces are maintained. Soft tissues appear unremarkable. IMPRESSION: Right femoral neck fracture. THIS IS AN ELECTRONICALLY VERIFIED FINAL REPORT 04/27/2025 5:22 PM - Electronically signed by Kain BAY: SHANIQUE Report ID: [id number] Reading Location: [id number] Procedure Note Kain iEd MD - 04/27/2025 EXAM DESCRIPTION: XR HIPS BILATERAL 5 OR MORE VIEWS W PELVIS REASON FOR STUDY: accidental fall Pt was brought in via EMS with complaints of right hip pain after a fallin a parking lot at the [facility]. Pt denies LOC, head injury or anticoagulationuse. Pt states she slipped on a wet man hole cover. TECHNIQUE: Five views of the pelvis and hips COMPARISON: 11/10/2024 FINDINGS: The bones are somewhat osteopenic. Mild degenerative changes are seen ofthe hips. Fracture of the right femoral neck is evident with mild impactionat the fracture site. Joint spaces are maintained. Soft tissues appear unremarkable. IMPRESSION: Right femoral neck fracture. THIS IS AN ELECTRONICALLY VERIFIED FINAL REPORT 04/27/2025 5:22 PM - Electronically signed by Kain Eid M.D. KH: SHANIQUE Report ID: [id number] Reading Location: [id number] Mohit Clement MD IMG XR PROCEDURES Final Res ult * XR CHEST 1 VIEW PORTABLE (04/27/2025 5:01 PM CDT) Anatomical Region Laterality Modality Body, Chest N/A Computed Radiogr aphy 04/27/2025 5:22 PM CDT Narrative 04/27/2025 5:23 PM CDT EXAM DESCRIPTION: XR CHEST 1 VIEW REASON FOR STUDY: accidental fall Pt was brought in via EMS with complaints of right hip pain after a fall in a parking lot at the [facility]. Pt denies LOC, head injury or anticoagulation use. Pt states she slipped on a wet man hole cover. TECHNIQUE: Single radiographic view(s) of the chest. COMPARISON: None FINDINGS: LUNGS: No focal opacity, pleural effusion, or pneumothorax. HEART/MEDIASTINUM: Cardiac silhouette normal in size. Mediastinal and hilar contours appear normal. LINES/TUBES: None. BONES: No acute osseous abnormality. IMPRESSION: No acute cardiopulmonary abnormality. THIS IS AN ELECTRONICALLY VERIFIED FINAL REPORT 04/27/2025 5:23 PM - Electronically signed by Kain BAY: SHANIQUE Report ID: [id number] Reading Location: [id number] Procedure Note Kain Eid MD - 04/27/2025 EXAM DESCRIPTION: XR CHEST 1 VIEW REASON FOR STUDY: accidental fall Pt was brought in via EMS with complaints of right hip pain after a fallin a parking lot at the [facility]. Pt denies LOC, head injury or anticoagulationuse. Pt states she slipped on a wet man hole cover. TECHNIQUE: Single radiographic view(s) of the chest. COMPARISON: None FINDINGS: LUNGS: No focal opacity, pleural effusion, or pneumothorax. HEART/MEDIASTINUM: Cardiac silhouette normal in size. Mediastinal andhilar contours appear normal. LINES/TUBES: None. BONES: No acute osseous abnormality. IMPRESSION: No acute cardiopulmonary abnormality. THIS IS AN ELECTRONICALLY VERIFIED FINAL REPORT 04/27/2025 5:23 PM - Electronically signed by Kain BAY: SHANIQUE Report ID: [id number] Reading Location: [id number] us Mohit Clement MD IMG XR PROCEDURES Final Res ult * XR Radius Ulna Right 2 Views (04/27/2025 5:01 PM CDT) Anatomical Region Laterality Modality Upper Extremities, Forearm Right Compu teresa Radiography 04/27/2025 5:23 PM CDT Narrative 04/27/2025 5:25 PM CDT EXAM DESCRIPTION: XR RADIUS ULNA RIGHT 2 VIEWS REASON FOR STUDY: accidental fall Pt was brought in via EMS with complaints of right hip pain after a fall in a parking lot at the [facility]. Pt denies LOC, head injury or anticoagulation use. Pt states she slipped on a wet man hole cover. TECHNIQUE: 2 radiographic view(s) of the right forearm . COMPARISON: None FINDINGS: BONES/JOINTS: There is no acute fracture, malalignment or osseous abnormality. Minor degenerative changes are noted. The bones are somewhat osteopenic. SOFT TISSUES: Within normal limits. IMPRESSION: No acute osseous abnormality. THIS IS AN ELECTRONICALLY VERIFIED FINAL REPORT 04/27/2025 5:25 PM - Electronically signed by Kain BAY: SHANIQUE Report ID: [id number] Reading Location: [id number] Procedure Note Kain Eid MD - 04/27/2025 EXAM DESCRIPTION: XR RADIUS ULNA RIGHT 2 VIEWS REASON FOR STUDY: accidental fall Pt was brought in via EMS with complaints of right hip pain after a fallin a parking lot at the [facility]. Pt denies LOC, head injury or anticoagulationuse. Pt states she slipped on a wet man hole cover. TECHNIQUE: 2 radiographic view(s) of the right forearm . COMPARISON: None FINDINGS: BONES/JOINTS: There is no acute fracture, malalignment or osseousabnormality. Minor degenerative changes are noted. The bones are somewhatosteopenic. SOFT TISSUES: Within normal limits. IMPRESSION: No acute osseous abnormality. THIS IS AN ELECTRONICALLY VERIFIED FINAL REPORT 04/27/2025 5:25 PM - Electronically signed by Kain BAY: SHANIQUE Report ID: [id number] Reading Location: [id number] us Mohit Clement MD IMG XR PROCEDURES Final Res ult * US VEIN DUPLEX LOWER EXTREMITY LEFT LIMITED, UNILATERAL (04/09/2025 2:45 PM CDT) Anatomical Region Laterality Modality Vascular Left Ultrasound 04/09/2025 2:53 PM CDT Impressions 04/09/2025 2:53 PM CDT There is no venous flow demonstrated in the surgically ablated left greater saphenous vein, commencing from 1.3 cm distal to the saphenofemoral junction all the way to the mid thigh region. Electronically signed by: Moises Israel M.D. Narrative 04/09/2025 2:53 PM CDT EXAMINATION: US VEIN DUPLEX LOWER EXTREMITY LEFT LIMITED, UNILATERAL HISTORY: The patient is a 79-year-old female who has had left greater saphenous vein ablation. TECHNIQUE: Left lower extremity venous duplex study was performed with craig scale imaging, color Doppler imaging and spectral waveform analysis. FINDINGS: The left common femoral vein is patent, with normal blood flow within it. There is thrombus noted in the left greater saphenous vein, commencing from 1.3 cm distal to the saphenofemoral junction all the way to the mid thigh level. Beyond this, in the left distal thigh, there is partial compressibility noted. Procedure Note oMises Israel MD - 04/09/2025 EXAMINATION: US VEIN DUPLEX LOWER EXTREMITY LEFT LIMITED, UNILATERAL HISTORY: The patient is a 79-year-old female who has had left greater saphenous vein ablation. TECHNIQUE: Left lower extremity venous duplex study was performed with craig scale imaging, color Doppler imaging and spectral waveform analysis. FINDINGS: The left common femoral vein is patent, with normal blood flow within it. There is thrombus noted in the left greater saphenous vein, commencing from 1.3 cm distal to the saphenofemoral junction all the way to the mid thigh level. Beyond this, in the left distal thigh, there is partial compressibility noted. IMPRESSION: There is no venous flow demonstrated in the surgically ablated left greater saphenous vein, commencing from 1.3 cm distal to the saphenofemoral junction all the way to the mid thigh region. Electronically signed by: Moises Israel M.D. Rajni Casillas MD IM US PROCEDURES Final Resu lt * US VEIN DUPLEX LOWER EXTREMITY LEFT LIMITED, UNILATERAL (04/05/2025 1:32 PM CDT) Anatomical Region Laterality Modality Vascular Left Ultrasound 04/05/2025 2:09 PM CDT Impressions 04/05/2025 2:09 PM CDT The left greater saphenous vein is thrombosed from 1.04 cm below the saphenofemoral junction up to the mid thigh region. There is no acute DVT in the left lower extremity. Electronically signed by: Moises Israel M.D. Narrative 04/05/2025 2:09 PM CDT EXAMINATION: US VEIN DUPLEX LOWER EXTREMITY LEFT LIMITED, UNILATERAL HISTORY: The patient is a 79-year-old female who has had prior radiofrequency ablation of the left greater saphenous vein on 04/02/2025. Comparison made with the previous study dated 02/01/2025. TECHNIQUE: Left lower extremity venous duplex study was performed with craig scale imaging, color Doppler imaging and spectral waveform analysis. FINDINGS: There is normal compressibility and phasicity in both common femoral veins as well as the left deep femoral, femoral, popliteal, posterior tibial and peroneal veins. Imaging of these veins reveals no thrombus or reflux. In addition, the left lesser saphenous veins and gastrocnemius veins are compressible. The left greater saphenous vein is thrombosed from approximately 1.04 cm beyond the saphenofemoral vein junction, all the way to the mid thigh region. The left greater saphenous vein is compressible in the lower thigh, all the way down to the entire calf. Procedure Note Moises Israel MD - 04/05/2025 EXAMINATION: US VEIN DUPLEX LOWER EXTREMITY LEFT LIMITED, UNILATERAL HISTORY: The patient is a 79-year-old female who has had prior radiofrequency ablation of the left greater saphenous vein on 04/02/2025. Comparison made with the previous study dated 02/01/2025. TECHNIQUE: Left lower extremity venous duplex study was performed with craig scale imaging, color Doppler imaging and spectral waveform analysis. FINDINGS: There is normal compressibility and phasicity in both common femoral veins as well as the left deep femoral, femoral, popliteal, posterior tibial and peroneal veins. Imaging of these veins reveals no thrombus or reflux. In addition, the left lesser saphenous veins and gastrocnemius veins are compressible. The left greater saphenous vein is thrombosed from approximately 1.04 cm beyond the saphenofemoral vein junction, all the way to the mid thigh region. The left greater saphenous vein is compressible in the lower thigh, all the way down to the entire calf. IMPRESSION: The left greater saphenous vein is thrombosed from 1.04 cm below the saphenofemoral junction up to the mid thigh region. There is no acute DVT in the left lower extremity. Electronically signed by: Moises Israel M.D. us Rajni Casillas MD IMG US PROCEDURES Final Resu lt * eGFR (03/27/2025 8:15 AM CDT) eGFR 83 >=60 mL/min/1. 73 m2 Comment: Interpretive Data Reference Interval Normal >/= 90 mL/min/1.73m2 Mildly decreased* 60 - 89 mL/min/1.73m2 Mildly to moderately decreased 45 - 59 mL/min/1.73m2 Moderately to severely decreased 30 - 44 mL/min/1.73m2 Severely decreased 15 - 29 mL/min/1.73m2 Kidney Failure < 15 mL/min/1.73m2 *Relative to young adult level Estimated glomerular filtration rate is determined by the 2020 CKD-EPI equation recommended by the National Kidney Foundation (A Unifying Approach to GFR Estimation: Recommendations of the NKF-ASK Task Force on Reassessing the Inclusion of Race in Diagnosing Kidney Disease, JASN 2020). The CKD-EPI equation should not be used for patients with unstable renal function and has not been validated in children and those over 70. Current interpretive data was last reviewed 2021. Testing performed by: [facility], [address] [place] [address]., [id number] Blood 03/27/2025 8:15 AM CDT 03/27/2025 1:53 PM CDT us Jannet Steel NP LAB BLOOD ORDERABLES Final Resul t [place] [address] [facility] Department [place] [address] * Albumin Creatinine Ratio, Urine (03/27/2025 8:15 AM CDT) Albumin Ur <12.0 mg/L Comment: Interpretive Data No reference range established. Current interpretive data was last revised 2019. Testing performed by: [facility], [address] [place] [address]., [address] Creatinine Ur 97.1 mg/dL [facility] Comment: Interpretive Data No reference range established. Current interpretive data was last revised 2019. Testing performed by: [facility], [address] [place] [address]., [address] Albumin Creatinine Ratio, Ur <12 1 - 29 mg/g [facility] Comment:Testing performed by : [facility], [address] [place] [address]., [address] Urine 03/27/2025 8:15 AM CDT 03/27/2025 1:39 PM CDT Jannet Steel ENRICHMENT DIRECTOR LAB URINE ORDERABLES Final Resul t [address] Department of Laboratories [place], [place] [id number] * Cholesterol, LDL, direct (03/27/2025 8:15 AM CDT) LDL Cholesterol, Direct 59 <=129 mg/dL Comment: Interpretive Data Ages < or = 19 years Acceptable: <110 mg/dL Borderline high: 110-129 mg/dL High: >or= 130 mg/dL Ages > or = 20 years Optimal: <100 mg/dL Near optimal: 100-129 mg/dL Borderline high: 130-159 mg/dL High: >160 mg/dL Literature References: 1. Expert Panel on Integrated Guidelines for Cardiovascular Health and Risk Reduction in Children and Adolescents. Pediatrics 2011;128:S213 2. NCEP Expert Panel. Circulation 2004;110:227 Current Interpretive Data was last revised on 2018. Testing performed by: [address] [address] Blood 03/27/2025 8:15 AM CDT 03/27/2025 1:39 PM CDT us Jannet Steel ENRICHMENT DIRECTOR LAB BLOOD ORDERABLES Final Resul t Performing Organization Address [facility] Co de Phone Number KENYETTA OLIVAREZ [address] [address] Department [place] [address] * (ABNORMAL) Hemoglobin A1c (03/27/2025 8:15 AM CDT) Hgb A1C 8.2(H) 4.0 - 5.6 % Comment:Testing performed by : [address] [address] Estimated Average Glucose 189 mg/dL [place] Comment: The ADA recommends reporting an estimated Average Glucose (eAG) with all Hemoglobin A1c results using the equation derived from a study of 507 normal and diabetic adults. Minority populations were underrepresented and children were not included. (Diabetes Care 31:7354-4711, 2008). The eAG is not equivalent to a fasting glucose. Testing performed by: [address] [address] Blood 03/27/2025 8:15 AM CDT 03/27/2025 1:39 PM CDT Jannet Steel NP LAB BLOOD ORDERABLES Final Resul t Performing Organization Address [facility] Co de Phone Number KENYETTA [address] [facility] Department [place] [address] * Comprehensive metabolic panel (03/27/2025 8:15 AM CDT) Pathologist [facility] Sodium 140 135 - 145 mmol/L Comment:Testing performed by : [address] [address] Potassium, pl 4.0 3.3 - 4.9 mmol/L [facility] Comment:Testing performed by : [address] [address] Chloride 102 97 - 110 mmol/L [facility] Comment:Testing performed by : [address] [address] CO2 28 22 - 32 mmol/L [facility] Comment:Testing performed by : [address] [address] Anion gap 10 2 - 15 mmol/L [facility] Comment:Testing performed by : [address] [address] BUN 13 6 - 25 mg/dL [facility] Comment:Testing performed by : [address] [address] Creatinine 0.74 0.60 - 1.10 mg/dL [facility] Comment:Testing performed by : [address] [address] Glucose 111 70 - 199 mg/dL [facility] Comment: Interpretive Data Fasting glucose >/= 126 mg/dl is diagnostic for diabetes. Fasting is defined as no caloric intake for at least 8 hours. Fasting glucose between 100 mg/dl to 125 mg/dl is diagnostic of prediabetes. In a patient with classic symptoms of hyperglycemia or hyperglycemic crisis, a random glucose >/= 200 mg/dl is diagnostic for diabetes. In the absence of unequivocal hyperglycemia, results should be confirmed by repeat testing. The classification and Diagnosis of Diabetes Diabetes Care 2021; 46: S19-S40. Current interpretive data was last revised 2022. Testing performed by: [address] [address] Calcium 9.5 8.5 - 10.3 mg/dL [facility] Comment:Testing performed by : [address] [address] Bilirubin, total 0.6 0.1 - 1.2 mg/dL [facility] Comment:Testing performed by : [address] [address] Protein, pl 7.5 6.5 - 8.5 g/dL [facility] Comment:Testing performed by : [address] [address] Albumin 4.3 3.5 - 5.0 g/dL [facility] Comment:Testing performed by : [address] [address] Alk phos 73 40 - 130 Units/L [facility] Comment:Testing performed by : [address], [address] ALT 27 7 - 45 Units/L [facility] Comment:Testing performed by : [address], [address] AST 28 10 - 45 Units/L [facility] Comment:Testing performed by : [facility], [id number] [place] [address], [place]., [address] Blood 03/27/2025 8:15 AM CDT 03/27/2025 1:39 PM CDT Jannet Steel ENRICHMENT DIRECTOR LAB BLOOD ORDERABLES Final Resul t [place] [address] [facility] [place] [address] * Screening Mammogram Bilateral [place] (03/15/2025 1:59 PM CDT) Anatomical Region Laterality Modality Breast Bilateral Mammography Impressions 03/15/2025 2:12 PM CDT There is no mammographic evidence of malignancy. A 1 year screening mammogram is recommended. BI-RADS: 1 - Negative. The patient has been or will be contacted. The patient will be entered into a reminder system with a target due date of 1 year for her next mammogram. Electronically signed by: Luz Flores M.D. Narrative 03/15/2025 2:12 PM CDT EXAMINATION: SCREENING MAMMOGRAM BILATERAL W BAY ORDERING HEALTHCARE PROVIDER: CHELSEY MARCUS HISTORY: Routine screening mammography. COMPARISON: 01/24/2023, 11/10/2021, 10/08/2020, 09/04/2019 TECHNIQUE: CC and MLO views of the bilateral breasts were obtained with digital technique using breast tomosynthesis with C view. Computer aided detection was utilized. FINDINGS: DENSITY: The tissue of the bilateral breasts is almost entirely fatty. BREASTS: There are no suspicious masses, suspicious calcifications, or other suspicious findings in either breast. There has been no suspicious interval change. Chelsey Marcus MD IMG MAMMO PROCEDURES Final Result * XR Pelvis 1 or 2 Views (02/26/2025 2:55 PM CDT) Anatomical Region Laterality Modality Body, Pelvis N/A Digital Radiogra phy Narrative 03/15/2025 9:54 AM CDT Radiographs of the pelvis is reviewed interpreted. No acute fractures or destructive osseous lesions. Degenerative changes appreciated of the bilateral femoral acetabular joints and visualized portions of the lower lumbar spine. Viandrae HERNÁNDEZ IMG XR PROCEDURES Final Result * XR Knee Right 4+ View (02/26/2025 2:55 PM CDT) Anatomical Region Laterality Modality Lower Extremities, Knee Right Digital Radiography Narrative 03/15/2025 9:55 AM CDT Radiographs of the right knee are reviewed interpreted. No acute fractures or destructive osseous lesions. Mild to moderate tricompartmental degenerative changes are noted with associated calcific chondrosis of the menisci. Yamileth Boswell Puneet HERNÁNDEZ IMG XR PROCEDURES Final Result * DIABETES EYE EXAM (11/05/2024 10:39 AM 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) SCRIBED DIABETIC DILATED EYE EXAM Normal [facility] Provider HEALTH MAINTENANCE Final Result * (ABNORMAL) Lipid panel (08/23/2024 8:43 AM 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) Cholesterol 140 30 - 199 mg/dL Comment: Interpretive Data Ages < or = 19 years Acceptable: <170 mg/dL Borderline high: 170-199 mg/dL High: >or= 200 mg/dL Ages > or = 20 years Desirable: <200 mg/dL Borderline high: 200-239 mg/dL High: >or= 240 mg/dL Literature References: 1. Expert Panel on Integrated Guidelines for Cardiovascular Health and Risk Reduction in Children and Adolescents. Pediatrics 2011;128:S213 2. NCEP Expert Panel. Circulation 2004;110:227 Current Interpretive Data was last revised on 2018. Testing performed by: [facility], [address] [place] [address]., [address] Triglycerides 262(H) <=149 mg/dL [facility] OLIVAREZ Comment: Interpretive Data Ages < or = 9 years Acceptable: <75 mg/dL Borderline high: 75-99 mg/dL High: >or= 100 mg/dL Ages 10 to 20 years Acceptable: <90 mg/dL Borderline high: 90-129 mg/dL High: >or= 130 mg/dL Ages > or = 20 years Desirable: <150 mg/dL Borderline high: 150-199 mg/dL High: 200-499 mg/dL Very high: >or= 499 mg/dL Literature References: 1. Expert Panel on Integrated Guidelines for Cardiovascular Health and Risk Reduction in Children and Adolescents. Pediatrics 2011;128:S213 2. NCEP Expert Panel. Circulation 2004;110:227 Current Interpretive Data was last revised on 2018. Testing performed by: [facility], [address] [place] [address]., [address] HDL 47 >=40 mg/dL [place] Comment: Interpretive Data Ages < or = 19 years Acceptable: >45 mg/dL Borderline low: 40-45 mg/dL Low: <40 mg/dL Ages > or = 20 years Desirable: >or= 60 mg/dL Low: <40 mg/dL Literature References: 1. Expert Panel on Integrated Guidelines for Cardiovascular Health and Risk Reduction in Children and Adolescents. Pediatrics 2011;128:S213 2. NCEP Expert Panel. Circulation 2004;110:227 Current Interpretive Data was last revised on 2018. Testing performed by: [facility], [address] [place] [address]., [address] LDL, calculated 52 <=129 mg/dL [place] Comment: Interpretive Data Ages < or = 19 years Acceptable: <110 mg/dL Borderline high: 110-129 mg/dL High: >or= 130 mg/dL Ages > or = 20 years Optimal: <100 mg/dL Near optimal: 100-129 mg/dL Borderline high: 130-159 mg/dL High: >160 mg/dL Calculated using the Karan LDL-C estimating equation. This equation was implemented on 2024. Prior to this date LDL-C was estimated using the Friedewald equation. Literature References: 1. Expert Panel on Integrated Guidelines for Cardiovascular Health and Risk Reduction in Children and Adolescents. Pediatrics 2011;128:S213 2. NCEP Expert Panel. Circulation 2004;110:227 3. Karan Campo al. CHANDRIKA Cardiol. 2020 February 07;5(5):540-548. doi: 10.1001/[email or web address].2020.0013 Current Interpretive Data was last revised on 2024. Testing performed by: [facility], [address] [place] [address]., [address] Non-HDL Cholesterol 93 mg/dL [place] Comment: Interpretive Data Ages < or = 19 years Acceptable: <120 mg/dL Borderline high: 120-144 mg/dL High: >145 mg/dL Ages > or = 20 years When triglycerides are >200 mg/dL, Non-HDL cholesterol is a secondary target of therapy with treatment goals that are 30 mg/dL greater than the LDL cholesterol target. Literature References: 1. Expert Panel on Integrated Guidelines for Cardiovascular Health and Risk Reduction in Children and Adolescents. Pediatrics 2011;128:S213 2. NCEP Expert Panel. Circulation 2004;110:227 Current Interpretive Data was last revised on 2018. Testing performed by: [facility], [address] [place] [address]., [address] Chol/HDL ratio 3 [place] Comment:Testing performed by : [facility], [address] [place] [address]., [address] Blood 08/23/2024 8:43 AM 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 08/23/2024 1:01 PM 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 us Chelsey Marcus MD LAB BLOOD ORDERABLES Final Result Performing Organization Address City/State/[facility] Co de Phone Number KENYETTA [address] Department of Laboratories [place], [place] [id number] * COLONOSCOPY (01/26/2022 7:54 AM CDT) Anatomical Region Laterality Modality Other Narrative Procedure Note Shwetha Gonzalez MD - 01/26/2022 7:54 AM CDT - [facility] Patient Name: Zulma Devine Procedure Date: 01/26/2022 7:54 AM Date of : 1945 Admit Type: Outpatient Age: 76 Gender: Female Note Status: Finalized Attending MD: Shwetha Gonzalez M.D. Procedure Date: 01/26/2022 Procedure: Colonoscopy Indications: Positive Cologuard test Providers: Shwetha Gonzalez M.D., Lakisha Sutherland CRNA (Anesthesia Staff), Christie Guerin RN Referring MD: Chelsey Marcus M.D. Medicines: Monitored Anesthesia Care Complications: No immediate complications. Estimated Blood Loss: Estimated blood loss: none. Procedure: Pre-Anesthesia Assessment: - Prior to the procedure, a History and Physicalwas performed, and patient medications and allergieswere reviewed. The patient is competent. The risks and benefits of the procedure and the sedation optionsand risks were discussed with the patient. Allquestions were answered and informed consent was obtained. Patient identification and proposed procedure were verified by the physician and the nurse in the pre-procedure area in the procedure room. Mental Status Examination: alert and oriented. Airway Examination: normal oropharyngeal airway and neck mobility. Respiratory Examination: clear to auscultation. CV Examination: normal. Prophylactic Antibiotics: The patient does not requireprophylactic antibiotics. Prior Anticoagulants: The patient has taken no anticoagulant or antiplatelet agents. ASA Grade Assessment: II - A patient with mild systemic disease. After reviewing the risks and benefits,the patient was deemed in satisfactory condition to undergo the procedure. The anesthesia plan was touse monitored anesthesia care (MAC). Immediately priorto administration of medications, the patient was re-assessed for adequacy to receive sedatives. The heart rate, respiratory rate, oxygen saturations, blood pressure, adequacy of pulmonary ventilation,and response to care were monitored throughout the procedure. The physical status of the patient was re-assessed after the procedure. - The risks and benefits of the procedure and the sedation options and risks were discussed with the patient. All questions were answered and informed consent was obtained. After I obtained informed consent, the scope was passed under direct vision. Throughout theprocedure, the patient's blood pressure, pulse, and oxygen saturations were monitored continuously. The scopewas passed under direct vision. The Colonoscope was introduced through the anus and advanced to the the cecum, identified by appendiceal orifice andileocecal valve. The colonoscopy was performed without difficulty. The patient tolerated the procedurewell. The quality of the bowel preparation was good. The bowel preparation used was GoLYTELY via extendedprep dose instruction. Findings: The perianal and digital rectal examinations were normal. A localized area of mildly erythematous mucosa was found in therectum. A few small and large-mouthed diverticula were found in the sigmoid colon, descending colon and transverse colon. Non-bleeding internal hemorrhoids were found during retroflexion. The hemorrhoids were mild. Impression: - Erythematous mucosa in the rectum. - Diverticulosis in the sigmoid colon, in the descending colon and in the transverse colon. - Non-bleeding internal hemorrhoids. - No specimens collected. Recommendation: - Discharge patient to home (ambulatory). - Resume previous diet. - Continue present medications. - Repeat colonoscopy is not recommended due tocurrent age (66 years or older). Procedure Code(s): --- Professional --- 20474, Colonoscopy, flexible; diagnostic, including collection of specimen(s) by brushing or washing,when performed (separate procedure) Diagnosis Code(s): --- Professional --- K62.89, Other specified diseases of anus andrectum K64.8, Other hemorrhoids R19.5, Other fecal abnormalities K57.30, Diverticulosis of large intestine without perforation or abscess without bleeding CPT copyright 2020 [employer]. All rights reserved. The codes documented in this report are preliminary and upon operations specialist reviewmay be revised to meet current compliance requirements. Electronically signed by Lisa Tadeo MD Shwetha Gonzalez M.D. 01/26/2022 9:18:06 AM This report has been electronically signed by the physician. Number of Addenda: 0 Note Initiated On: 01/26/2022 7:54 AM Shwetha Gonzalez MD ENDOSCOPY PROCEDURES Final Re sult * Dexa Axial Skeleton Bone Density 1 or 2 Site (11/30/2021 8:23 AM 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) Anatomical Region Laterality Modality Body N/A Other 11/30/2021 8:38 AM 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 Narrative 11/30/2021 8:39 AM 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 EXAM DESCRIPTION: DEXA AXIAL SKELETON BONE DENSITY 1 OR MORE SITES REASON FOR STUDY: 76 y/o year old F with given history of screening. 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 FINDINGS: AP LUMBAR SPINE L1-L4: Total BMD is 1.082 g/cm2 T-score is 0.3 LEFT HIP: Total BMD is 0.872 g/cm2 T-score is -0.6 Femoral neck BMD is 0.685 g/cm2 T-score is -1.5 IMPRESSION: Low bone mass. Fracture risk assessment (FRAX): 10 year risk for a major osteoporotic fracture is 10 % 10 year risk for a hip fracture is 1.9 % The FRAX tool has not been validated in patients currently or previously treated with pharmacotherapy for osteoporosis. In such patients, clinical judgement must be exercised in interpreting FRAX scores as the fracture risk may be overestimated. REFERENCE: Bone mineral density: Normal (T-score above or = -1.0) Low bone mass (T-score between -1.0 and -2.5) replaces the previously used term osteopenia Osteoporosis (T-score = or below -2.5) Medical evaluation for secondary causes of low bone mineral density may be appropriate. FRAX is a World Health Organization validated fracture risk assessment tool that calculates a person's 10 year probability of a major osteoporosis related fracture and hip fracture. According to the National Osteoporosis Foundation guidelines, postmenopausal women and men age 50 or older with low bone mass and a 10 year probability of a major osteoporosis related fracture = or greater than 20% or a 10 year probability of a hip fracture = or greater than 3% should be considered for treatment. For further information, including treatment recommendations, please refer to the 2013 ISCD Official Positions (http://www.iscd.org) and the NOF's Clinician's Guide to Prevention and Treatment of Osteoporosis (http://www.nof.org/professionals/clinical-guidelines) THIS IS AN ELECTRONICALLY VERIFIED FINAL REPORT 11/30/2021 8:39 AM - Electronically signed by Shelbi Mancuso M.D. TB: TB Report ID: [id number] Reading Location: [facility] Procedure Note Shelbi Mancuso MD - 11/30/2021 EXAM DESCRIPTION: DEXA AXIAL SKELETON BONE DENSITY 1 OR MORE SITES REASON FOR STUDY: 76 y/o year old F with given history ofscreening. 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 FINDINGS: AP LUMBAR SPINE L1-L4: Total BMD is 1.082 g/cm2 T-score is 0.3 LEFT HIP: Total BMD is 0.872 g/cm2 T-score is -0.6 Femoral neck BMD is 0.685 g/cm2 T-score is -1.5 IMPRESSION: Low bone mass. Fracture risk assessment (FRAX): 10 year risk for a major osteoporotic fracture is 10 % 10 year risk for a hip fracture is 1.9 % The FRAX tool has not been validated in patients currently or previously treated with pharmacotherapy for osteoporosis. In such patients, clinical judgement must be exercised in interpreting FRAX scores as the fracturerisk may be overestimated. REFERENCE: Bone mineral density: Normal (T-score above or = -1.0) Low bone mass (T-score between -1.0 and -2.5) replaces thepreviously used term osteopenia Osteoporosis (T-score = or below -2.5) Medical evaluation for secondary causes of low bone mineral density may be appropriate. FRAX is a World Health Organization validated fracture risk assessmenttool that calculates a person's 10 year probability of a major osteoporosisrelated fracture and hip fracture. According to the National OsteoporosisFoundation guidelines, postmenopausal women and men age 50 or older with low bonemass and a 10 year probability of a major osteoporosis related fracture = or greater than 20% or a 10 year probability of a hip fracture = or greaterthan 3% should be considered for treatment. For further information, including treatment recommendations, please referto the 2013 ISCD Official Positions (http://www.iscd.org) and the NOF's Clinician's Guide to Prevention and Treatment of Osteoporosis (http://www.nof.org/professionals/clinical-guidelines) THIS IS AN ELECTRONICALLY VERIFIED FINAL REPORT 11/30/2021 8:39 AM - Electronically signed by Shelbi Mancuso M.D. TB: TB Report ID: [id number] Reading Location: [facility] Chelsey Marcus MD IM DXA PROCEDURES Final R esult * Hepatitis C antibody (03/17/2020 8:07 AM CDT) Pathologist [facility] Hep C Ab Nonreactive Nonreactive KENYETTA OLIVAREZ Comment: Interpretive Data Nonreactive: Antibodies to HCV not detected. Does NOT exclude the possibility of recent exposure to HCV. Equivocal: Equivocal for HCV antibodies. Supplemental molecular testing will be automatically performed to determine infection status in accordance with current CDC screening recommendations. Reactive: Positive for HCV antibodies. This may represent current or past HCV infection. Supplemental molecular testing will be automatically performed to determine current infection status in accordance with current CDC screening recommendations. Interpretive data was last revised on 2019. Blood specimen (specimen) 03/17/2020 8:07 AM CDT 03/17/2020 1:26 PM CDT Rodger KUMARI - 03/17/2020 3:02 PM CDT March 2020 us Chelsey Marcus MD LAB MICROBIOLOGY - GENERAL ORDERABLES Final Result Performing Organization Address City/State/ZIP Co co Phone Number KENYETTA [address] [facility] [place] [address] from Last 3 Months or Most Recently Relevant to Health Maintenance Insurance MEDICARE MEDICARE [facility] MEDICARE SUPPLEMENT MEDICARE [facility] MEDICARE SUPPLEMENT Advance Directives For more information, please contact: [phone] Documents on File Type Date Recorded Patient Engineer Assistant Expl anation ADVANCE DIRECTIVE 07/12/2024 POWER OF A TTORNEY-MEDICAL ADVANCE DIRECTIVE 09/10/2019 DNR ADVANCE DIRECTIVE 08/29/2014 POWER OF A TTORNEY-MEDICAL ADVANCE DIRECTIVE 01/30/2003 LIVING NING L * Full Code (Latest Code Status on File) Date Activated Date Inactivated Comments 04/27/2025 7:55 PM 04/30/2025 8:59 PM * Full Code Date Activated Date Inactivated Comments 11/10/2022 7:37 PM 11/12/2022 3:20 PM Care Teams Economics Professor Relationship Specialty Start Date End Date Chelsey Marcus MD PCP - General 01/07/17 Yamileth Johnson MD [address] [place] [address] Gynecology 05/16/17 [place] [address] [place] [address] Consulting Physician Gastroenterology 12/30/21 [place] [address] [place] [address] Consulting Physician Gastroenterology 11/12/22 [place] [address] [place] [address] Consulting Physician Vascular Surgery 04/04/25 [place] [address] [place] [address] Consulting Physician Urology 04/04/25 [place] [address] [facility] [address] [place] [address] Optometry 04/04/25 Jeffrey Hernandez MD [address] [facility] [address] [place] [address] Surgeon Orthopedic Surgery 04/30/25 Patty Wells, SHA [address] [place] [address] [address] [place] [address] Chain Builder Loom Control 05/01/25
--- OUTSIDE RECORDS SUMMARY | 2025-05-27 10:10 | XMS_ITS | Encounter Summary ---
Author Organization [facility] Address [address] [facility] [place] [address] Care Team Providers Care Leasing Property Manager Name Role Phone Luz Oneal MD Primary Care Provider [phone] Luz Oneal MD Primary Care Provider [phone] Reason for Visit * Reason Onset Date Comments MEDICATION REFILL 04/20/2023 Encounter Details Date Type Department Care Team (Late st Contact Info) Description 04/20/2023 Telephone [facility] - PSYCH NURSE [address] [facility] [address] [place] [address] Yamileth Johnson MD [address] [place] [address] MEDICATION REFILL Social History Tobacco Use Types Packs/Day Years Used Date Smoking Tobacco: Never Smokeless Tobacco: Never Alcohol Use Standard Drinks/Week Comments No 0 (1 standard drink = 0.6 oz pur e alcohol) Comments No Sex and Gender Information Value Date Recorded Sex Assigned at Not on file Legal Sex Female 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 Next appt 06/15/2023. Forwarding to Dr Johnson. * Telephone Encounter - Alice Sanchez - 04/20/2023 11:51 AM CDT Patient called in because she needs her script for vicodone refilled. Thank You Alice Cb: [phone] documented in this encounter Plan of Treatment Not on file documented as of this encounter Visit Diagnoses Not on filedocumented in this encounter Care Teams Leasing Property Manager Relationship Specialty Start Date End Date Luz Oneal MD [address] [place] [address] PCP - General 12/09/11 06/21/23 Luz Oneal MD [address] [place] [address] PCP - General Internal Medicine 06/22/23 documented as of this encounter
--- OUTSIDE RECORDS SUMMARY | 2025-05-27 10:10 | XMS_ITS | Encounter Summary ---
Author Organization [facility] Address [address] [facility] [place] [address] Care Team Providers Care Dip Guider Stoves Name Role Phone Luz Oneal MD Primary Care Provider [phone] Luz Oneal MD Primary Care Provider [phone] Reason for Visit * Reason Onset Date Comments MEDICATION REFILL 12/16/2020 Encounter Details Date Type Department Care Team (Late st Contact Info) Description 12/16/2020 Telephone [facility] [address] [place] [address] Yamileth Johnson MD [address] [place] [address] MEDICATION REFILL Social History Tobacco Use Types Packs/Day Years Used Date Smoking Tobacco: Never Smokeless Tobacco: Never Alcohol Use Standard Drinks/Week Comments No 0 (1 standard drink = 0.6 oz pur e alcohol) Comments No Sex and Gender Information Value Date Recorded Sex Assigned at Not on file 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 She has a chronic pain condition that necessitates pain treatment. GHT LOADING SUPERVISOR * Telephone Encounter - Salome Medeiros LPN - 12/16/2020 8:55 AM FREIGHT LOADING SUPERVISOR Last visit 03/2020 Next visit 03/2021 Last refill vicodin / last refill norco 11/06/2020 for 92 tabs. Due to type of medication will send to provider for review and possible refill GHT LOADING SUPERVISOR * Telephone Encounter - Ksenia Ho - 12/16/2020 8:23 AM CST Pt calling for refill on Rx Vicodin. CB #: [phone] GHT LOADING SUPERVISOR documented in this encounter Plan of Treatment Not on file documented as of this encounter Visit Diagnoses Not on filedocumented in this encounter Care Teams Dip Guider Stoves Relationship Specialty Start Date End Date Luz Oneal MD [address] [place] [address] PCP - General 12/09/11 06/21/23 Luz Oneal MD [address] [place] [phone] PCP - General Internal Medicine 06/22/23 documented as of this encounter
--- OUTSIDE RECORDS SUMMARY | 2025-05-27 10:10 | XMS_ITS | Encounter Summary ---
Author Organization [facility] Healthcare Address [address] [place] [address] Care Team Providers Care English Horn Player Name Role Phone Chelsey Oneal MD Primary Care Provider [phone] Yamileth Johnson MD Unavailable [phone] Colton Larsen Unavailable Unavail able Ihsan Durham MD Unavailable [phone] Shwetha Gonzalez MD Unavailable [phone] Ana Modi MD Unavailable [phone] Josef Duckworth MD Unavailable [phone] Braulio Casillas MD Unavailable [phone] Jeramie De La Rosa MD Unavailable [phone] Edie Cardenas OD Unavailable [phone] Jeffrey Hernandez MD Unavailable [phone] Patty Wells RN Unavailable [phone] Encounter Details Date Type Department Care Team (Late st Contact Info) Description 11/27/2021 Telephone [facility] Center [address] [place] [address] Taty Rider, RT Social History Tobacco Use Types Packs/Day Years Used Date Smoking Tobacco: Never Smokeless Tobacco: Never Alcohol Use Standard Drinks/Week Comments No 0 (1 standard drink = 0.6 oz pur e alcohol) PHQ-2 Answer Date Recorded PHQ-2 Total Score (If total score is 3 or more points, staff should administer the PHQ-9) 0 11/17/2021 Comments No Sex and Gender Information Value Date Recorded Sex Assigned at Not on file Legal Sex Female 10:26 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 Gender Identity Not on file Sexual Orientation Not on file 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 Not on file Not on file documented as of this encounter Plan of Treatment Not on file documented as of this encounter Visit Diagnoses Not on filedocumented in this encounter Care Teams English Horn Player Relationship Specialty Start Date End Date Chelsey Oneal MD PCP - General 01/07/17 Yamileth Johnson MD [address] [place] [address] Gynecology 05/16/17 Colton Larsen [address] [place] [address] Gastroenterology 05/16/17 04/03/25 Ihsan Durham MD [address] [place] [address] Consulting Physician Urology 09/10/19 04/03/25 [place] [address] [place] [address] Consulting Physician Gastroenterology 12/30/21 [place] [address] [place] [address] Consulting Physician Gastroenterology 11/12/22 Josef Duckworth MD [address] [place] [address] Referring Physician Ophthalmology 11/23/22 04/03/25 [place] [address] [place] [address] Consulting Physician Vascular Surgery 04/04/25 [place] [address] [place] [address] Consulting Physician Urology 04/04/25 Edie Cardenas, JENNIFER [address] [facility] [address] [place] [address] Optometry 04/04/25 Jeffrey Hernandez MD [address] [place] [address] [address] [place] [address] Surgeon Orthopedic Surgery 04/30/25 Patty Wells RN [address] [place] [address] [address] [place] [address] Shop Tech 05/01/25 documented as of this encounter
--- OUTSIDE RECORDS SUMMARY | 2025-05-27 10:10 | XMS_ITS | Encounter Summary ---
Author Organization [facility] Address [address] [facility] [place] [address] Care Team Providers Care Is Support Analyst Name Role Phone Luz Oneal MD Primary Care Provider [phone] Reason for Visit * Reason Onset Date Comments Patient Requested Call 10/24/2024 Encounter Details Date Type Department Care Team (Late st Contact Info) Description 10/24/2024 Telephone [facility] - SUPERVISOR MOLD SHOP [address] [facility] [address] [place] [address] Yamileth Johnson MD [address] [place] [address] Patient Requested Call Social History Tobacco Use Types Packs/Day Years Used Date Smoking Tobacco: Never Smokeless Tobacco: Never Alcohol Use Standard Drinks/Week Comments No 0 (1 standard drink = 0.6 oz pur e alcohol) Comments No Sex and Gender Information Value Date Recorded Sex Assigned at Not on file 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 CB [phone] PAINTER documented in this encounter Plan of Treatment Not on file documented as of this encounter Visit Diagnoses Not on filedocumented in this encounter Care Teams Is Support Analyst Relationship Specialty Start Date End Date Luz Oneal MD [address] [place] [address] PCP - General Internal Medicine 06/22/23 documented as of this encounter
--- NOTE | 2025-05-27 10:17 | ED.SKABFB ---
HPI - Skin/Abscess/Foreign Bdy General Chief complaint: Skin/Abscess/Foreign Body Stated complaint: Rash Time Seen by Provider: 05/27/25 10:10 Source: patient and RN notes reviewed Mode of arrival: ambulatory Limitations: no limitations History of Present Illness HPI narrative: 79-year-old female presents Express Care complaining of rash to her low back and buttocks for the last few days. Patient also reports feeling to the back of her scalp and behind her right ear. Patient denies any changes in detergents, soaps, lotions are any new medications. Patient says she recently had a hip surgery 1 month ago. Few days ago patient noticed a pruritic red rash to her low back extending into her buttocks. Patient reports that is extremely pruritic. Patient denies any pain, fevers body aches, chills, nausea vomiting, breathing problems or any other symptoms. Patient has been using hydrocortisone and Benadryl with mild relief. Patient is a diabetic. Related Data Home Medications ?Medication ?Instructions ?Recorded ?Confirmed ?Last Taken ?Type amlodipine 5 mg tablet mg 07/25/24 Unknown History atenolol 50 mg tablet mg 07/25/24 Unknown History atorvastatin 40 mg tablet mg 07/25/24 Unknown History insulin NPH-regular 70-30 U-100 subcut 07/25/24 Unknown History insulin 100 unit/mL subcutaneous pen (Humulin 70/30 U-100 KwikPen) lancets 33 gauge (OneTouch Delica 07/25/24 07/25/24 Unknown History Plus Lancet) lisinopril 20 mg tablet mg 07/25/24 Unknown History metformin 500 mg tablet mg 07/25/24 Unknown History pen needle, diabetic 32 gauge x 07/25/24 07/25/24 Unknown History (Droplet Pen Needle) tirzepatide 2.5 mg/0.5 mL mg subcut 07/25/24 Unknown History subcutaneous pen injector (Mounjaro) trazodone 50 mg tablet mg 07/25/24 Unknown History hydrocodone 5 mg-acetaminophen 325 tablet 05/27/25 Unknown History mg tablet Allergies Allergy/AdvReac Type Severity Reaction Status Date / Time Sulfa (Sulfonamide Allergy Rash Verified 07/25/24 17:08 Antibiotics) Review of Systems Review of Systems: CONSTITUTIONAL: Denies fever, chills, or sweats. EYES: Denies visual changes, redness, or discharge. ENT: Denies rhinorrhea, congestion, sore throat, or otalgia. CARDIOVASCULAR: Denies chest pain, palpitations, or edema. RESPIRATORY: Denies cough or dyspnea. GASTROINTESTINAL: Denies abdominal pain, nausea, vomiting, or diarrhea. GENITOURINARY: Denies dysuria or hematuria. SKIN: Positive for rash and itching. MUSCULOSKELETAL: Denies back pain, joint pain, or myalgia. NEUROLOGIC: Denies headache, numbness, or weakness. PSYCHIATRIC: Denies anxiety or depression. All other systems reviewed are negative, except as documented in HPI. PMFSH Comments At the time of my signature, I reviewed and agree with the nursing past medical, surgical, social, and family history. There is no relevant family history pertinent to the patient complaint. Exam Narrative: GENERAL: This is a well-nourished, well-developed adult, in no apparent distress. They are non ill-appearing, nontoxic appearing. HEAD: normocephalic, atraumatic. EYES: Sclera clear/white. Conjunctiva normal. Vision is grossly intact. Extraocular movements intact EARS: External ears normal, Hearing grossly intact. NOSE: External nose normal THROAT: Mucous membranes moist, OROPHARYNX: No suspicious lesions or rash. NECK: Neck supple, CARDIOVASCULAR: Regular rate and rhythm RESPIRATORY: Respiratory rate normal, respiratory effort nonlabored, no respiratory distress SKIN: Erythematous macular pruritic rash scattered throughout the patient's lower back and buttocks. Rash present scantly back to the posterior scalp and behind the right ear. Rash nontender. No area of fluctuance no induration, no exudate. NEURO: awake, alert, and oriented to person, place and time. There were no obvious focal neurologic abnormalities. EXTREMITIES: No joint tenderness, effusion, or edema noted. BACK: Nontender without deformity. No CVA tenderness. Course Course Emergency Course: Portions of this record may have been created with voice recognition software Level of Care: Express Care Visit Vital Signs Vital signs: Vital Signs Temperature 97.8 F 05/27/25 09:40 Pulse Rate 77 05/27/25 09:40 Respiratory Rate 20 05/27/25 09:40 Blood Pressure 174/60 H 05/27/25 09:40 Pulse Oximetry 98 05/27/25 09:40 Oxygen Delivery Room Air 05/27/25 09:40 Temperature 97.8 F 05/27/25 09:40 Pulse Rate 77 05/27/25 09:40 Respiratory Rate 20 05/27/25 09:40 Blood Pressure 174/60 H 05/27/25 09:40 Pulse Oximetry 98 05/27/25 09:40 Oxygen Delivery Room Air 05/27/25 09:40 Reviewed MDM - Skin/Abscess/Foreign Bdy MDM Narrative Medical decision making narrative: Patient likely has some type of allergic reaction. Will prescribe prednisone. Discussed physical exam findings. Advised supportive measures and signs/symptoms to go to the ER. Pt is appropriate for outpt treatment and f/u. Differential Diagnosis Differential diagnosis: Likely dermatophytosis, cellulitis, eczema and other (Allergic reaction, contact dermatitis, allergic dermatitis, drug reaction) Critical Care Time Critical Care Time Critical Care Time: No Discharge Plan Discharge Clinical Impression: Rash Patient Disposition: Home Condition: Stable Instructions: Acute Rash (ED) Additional Instructions: Take the prednisone as directed. Take it in the morning and take it with food. Monitor blood sugars closely while taking prednisone. You may use calamine lotion, camphor, hydrocortisone cream, Benadryl cream as needed for itchiness symptoms. Follow instructions on the bottle. You may also take Zyrtec or Claritin as needed for allergy or itchiness symptoms. Follow instructions on the bottle. Follow-up PCP in 3-5 days. If you develop any worsening redness, swelling, discharge, fevers, breathing problems, or any other concerns please go to the ER immediately. Patient Language: Mohawk Prescriptions: New prednisone 20 mg tablet 40 mg PO DAILY 4 Days Qty: 8 0RF No Action hydrocodone-acetaminophen 5-325 mg tablet atorvastatin 40 mg tablet metformin 500 mg tablet trazodone 50 mg tablet lisinopril 20 mg tablet amlodipine 5 mg tablet atenolol 50 mg tablet Humulin 70/30 U-100 KwikPen 100 unit/mL (70-30) insulin pen SUBCUT (DME) pen needle, diabetic [Droplet Pen Needle] 32 gauge x 5/32 needle MISCELLANEOUS (DME) lancets [OneTouch Delica Plus Lancet] 33 gauge misc MISCELLANEOUS Mounjaro 2.5 mg/0.5 mL pen injector SUBCUT Follow-up/Referrals: Kimmy,MD Chelsey [Primary Care Provider] - Time of Disposition: 10:17
== END 2025-05-27 10:20 | disposition home or self-care (01) ==
PROVIDERS: PCP Internal Medicine Geriatric Medicine
DX: R21 Rash and other nonspecific skin eruption (principal); E11.9 Type 2 diabetes mellitus without complications; Z79.4 Long term (current) use of insulin; Z79.84 Long term (current) use of oral hypoglycemic drugs; I10 Essential (primary) hypertension; E78.00 Pure hypercholesterolemia, unspecified; M19.90 Unspecified osteoarthritis, unspecified site
CPT/HCPCS: 99213; G0463